=== PATIENT | female | born 1960 ===

== ENCOUNTER 2017-08-06 00:22 | Emergency (ER) | payer OTHER ==
[2017-08-06 00:23] VITALS: BMI 27.3
[2017-08-06 00:31] VITALS: BP 150/77; PULSE 80; TEMP 97.7; O2SAT 99
[2017-08-06] MEDS ORDERED: Tetanus/Diphtheria Toxoids 0.5 ml Syringe IM ONE (00:44)
[2017-08-06] MEDS ORDERED: Absorbable Gelatin Sponge Size 12-7 MM STA (00:44)
[2017-08-06] MEDS ORDERED: Absorbable Gelatin Sponge Size 12-7 ONE (00:46)
--- NOTE | 2017-08-06 00:53 | C.PDOC ---
History Of Present Illness 57 year old female presents to the ED for evaluation of wound to right index finger sustained just prior to arrival. 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 She is not up to date with tetanus. She denies change in sensation or other injuries. Time Seen by Provider: 08/06/17 00:39 Chief Complaint (Nursing): Abnormal Skin Integrity History Per: Patient History/Exam Limitations: no limitations Onset/Duration Of Symptoms: Hrs Current Symptoms Are (Timing): Still Present Location Of Injury: Right: Hand (index finger ) Quality Of Symptoms: Painful. denies: Itching, Swollen, Draining Recent travel outside of the [place]: No Past Medical History Reviewed: Historical Data, Nursing Documentation, Vital Signs Vital Signs: Last Vital Signs Temp 97.7 F 08/06/17 00:28 Pulse 80 08/06/17 00:28 Resp 20 08/06/17 01:04 BP 150/77 08/06/17 00:28 Pulse Ox 99 08/06/17 04:27 Family History: States: Unknown Family Hx - Social History Hx Alcohol Use: No Hx Substance Use: No - Immunization History Hx Tetanus Toxoid Vaccination: No Hx Influenza Vaccination: No Hx Pneumococcal Vaccination: No Review Of Systems Constitutional: Negative for: Fever Gastrointestinal: Negative for: Nausea, Vomiting Skin: Positive for: Other (wound to right index finger ) Neurological: Negative for: Weakness, Numbness Physical Exam - Physical Exam Appears: Non-toxic, No Acute Distress Skin: Warm, Dry, Other (8mm x 5 mm skin avulsion to tip of right index finger with moderate bleeding. No bone exposure. Fingernail is intact. ) Head: Atraumatic, Normacephalic Extremity: Normal ROM, No Tenderness, Capillary Refill (good capillary refill, less than two seconds ), No Swelling Pulses: Left Radial: Normal, Right Radial: Normal Neurological/Psych: Oriented x3 ED Course And Treatment O2 Sat by Pulse Oximetry: 99 (RA) Progress Note: Wound was irrigated with normal saline. Gelfoam was used, hemostasis was achieved, and wound was dressed in a sterile fashion. Patient given tetanus vaccine and Keflex. Disposition - Disposition Disposition: HOME/ ROUTINE Disposition Time: 00:52 Condition: STABLE Additional Instructions: Follow up with your PMD within 1-2 days. Return to ED if feel worse. 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 - Scribe Statement The provider has reviewed the documentation as recorded by the Scribe Marisol Koenig All medical record entries made by the Scribe were at my direction and personally dictated by me. I have reviewed the chart and agree that the record accurately reflects my personal performance of the history, physical exam, medical decision making, and the department course for this patient. I have also personally directed, reviewed, and agree with the discharge instructions and disposition.
[2017-08-06 01:04] VITALS: RESP 20
== END 2017-08-06 01:14 | disposition home or self-care (01) ==
LOC: C.ER 00:22
DX: S61.210A Laceration without foreign body of right index finger without damage to nail, initial encounter (principal); W29.0XXA Contact with powered kitchen appliance, initial encounter; Y93.G1 Activity, food preparation and clean up; Y92.89 Other specified places as the place of occurrence of the external cause; Y99.0 Civilian activity done for income or pay

== ENCOUNTER 2018-04-29 15:43 | Inpatient (IN) | payer OTHER ==
[2018-04-29 15:57] VITALS: BMI 25.0
[2018-04-29] MEDS ORDERED: Sodium Chloride 0.9% 1,000 ML IV ONE (16:38)
--- NOTE | 2018-04-29 16:40 | C.PDOC ---
History Of Present Illness 57 y/o female presents to ED sent by PMD for low hemoglobin. Patient states she had blood work done and was notified her hemoglobin was around 4, advised to come to ED for further evaluation. Patient denies vaginal bleeding, gi bleeding , lightheadedness, fever, chills or any other complaints at this time. Time Seen by Provider: 04/29/18 16:37 Chief Complaint (Nursing): Abnormal Labs History Per: Patient History/Exam Limitations: no limitations Onset/Duration Of Symptoms: Days Current Symptoms Are (Timing): Still Present Past Medical History Reviewed: Historical Data, Nursing Documentation, Vital Signs Vital Signs: Last Vital Signs Temp 99 F 04/29/18 15:59 Pulse 82 04/29/18 18:30 Resp 18 04/29/18 18:30 BP 118/45 L 04/29/18 18:30 Pulse Ox 100 04/29/18 19:06 - Medical History PMH: No Chronic Diseases Surgical History: No Surg Hx Family History: States: No Known Family Hx - Social History Hx Alcohol Use: No Hx Substance Use: No - Immunization History Hx Tetanus Toxoid Vaccination: No Hx Influenza Vaccination: No Hx Pneumococcal Vaccination: No Review Of Systems Constitutional: Negative for: Fever, Chills Cardiovascular: Negative for: Chest Pain Respiratory: Negative for: Shortness of Breath Gastrointestinal: Negative for: Nausea, Vomiting Skin: Negative for: Rash Neurological: Positive for: Weakness. Negative for: Numbness Physical Exam - Physical Exam Appears: Non-toxic, No Acute Distress Skin: Warm, Dry, No Rash Head: Atraumatic, Normacephalic Eye(s): bilateral: Normal Inspection Oral Mucosa: Moist Neck: Normal ROM, Supple Cardiovascular: Rhythm Regular Respiratory: Normal Breath Sounds, No Rales, No Rhonchi, No Wheezing Gastrointestinal/Abdominal: Soft, No Tenderness, No Guarding, No Rebound Rectal: Heme Positive, Blood Streaked Stool Extremity: Pedal Edema (trace), Capillary Refill (<2 seconds), No Deformity, No Swelling Neurological/Psych: Oriented x3, Normal Speech, Normal Cognition ED Course And Treatment - Laboratory Results Result Diagrams: 04/29/18 17:58 04/29/18 17:58 Lab Interpretation: Abnormal ECG: Interpreted By Me ECG Rhythm: Sinus Rhythm ECG Interpretation: No Acute Changes Rate From EC O2 Sat by Pulse Oximetry: 100 (RA) Pulse Ox Interpretation: Normal Progress Note: Treated with IVF NSS. Type and cross for 2 units PC. 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 - Scribe Statement The provider has reviewed the documentation as recorded by the Scribe Suzan Merritt All medical record entries made by the Edgraibvernon were at my direction and personally dictated by me. I have reviewed the chart and agree that the record accurately reflects my personal performance of the history, physical exam, medical decision making, and the department course for this patient. I have also personally directed, reviewed, and agree with the discharge instructions and disposition. Decision To Admit - Pt Status Changed To: Hospital Disposition Of: [facility] Extended Stay Bed - InPatient: Physician Admission Certification: I certify that this patient requires 2 or more midnights of care for the following reason:: Anemia - . Bed Request Type: Telemetry Admitting Physician: Hubert Weber Patient Diagnosis: Anemia, GIB (gastrointestinal bleeding)
[2018-04-29] MEDS ORDERED: Sodium Chloride 0.9% 1,000 ML ONE (16:57)
[2018-04-29 18:17] LABS: ALB/GLOB RATIO 1.1 (1.0-2.1); ALBUMIN 3.4 g/dL (3.5-5.0); ALT/SGPT 36 U/L (9-52); AST/SGOT 43 U/L (14-36); BLOOD UREA NITROGEN 14 mg/dL (7-17); GFR AFRICAN-AMERICAN > 60; GFR NON-AFRICAN AMERICAN > 60
[2018-04-29 18:26] LABS: BASO % 1.2 % (0.0-2.0); EOS # 0.1 K/uL (0.0-0.7); EOS % 4.7 % (0.0-4.0); LYMPH # 0.6 K/uL (1.0-4.3); MEAN CELL VOLUME 64.4 fL (81.0-99.0); MEAN CORPUSCULAR HEMOGLOBIN 18.9 pg (27.0-31.0); MEAN CORPUSCULAR HGB CONC 29.4 g/dL (33.0-37.0); MEAN PLATELET VOLUME 8.7 fL (7.2-11.7); MONO # 0.2 K/uL (0.0-0.8); MONO % 7.9 % (0.0-10.0); NEUT # 1.4 K/uL (1.8-7.0); NEUT % 59.2 % (50.0-75.0); NRBC % 0.5 % (0.0-2.0); RBC 2.55 Mil/uL (3.80-5.20); RED CELL DISTRIBUTION WIDTH 19.6 % (11.5-14.5); WHITE BLOOD COUNT 2.3 K/uL (4.8-10.8)
[2018-04-29 18:32] LABS: HEMOGLOBIN 4.8 g/dL (11.0-16.0)
[2018-04-29] MEDS ORDERED: Pantoprazole 80 MG in Sodium Chloride 0.9% 100 ML IVP SCH (19:15)
--- NOTE | 2018-04-29 20:44 | CP.PCM.HP ---
<Mariam PathakLarry - Last Filed: 04/29/18 21:31> History of Present Illness - History of Present Illness History of Present Illness: CC: "my legs are swollen" HPI: 57 year old female with past medical history as noted before presents to the ER because her PMD told her to come due to her hemaglobin level of 4.8 in the office. Patient states today was her first visit with her PMD Dr. Romero and she went to see him because she has been having bilateral lower extremity edema for the past 5 days. She states the swelling is new and has never happened before. She states for the past few months she has felt headache, short of breath after walking half a block it takes her 3 minutes of rest to catch her breath. She also states the past couple of weeks she has been having chills and she states she has had a decrease in weight the past year but cannot quantify how many pounds. She states she does take Motrin a few times per week for headache but denies taking it everyday. She states her bowel movements have been regular but her stool has been dark in color and sometimes white. She denies blood in her stool, urine or vaginal bleeding. She states she had a colonoscopy in 1993 because at that time she had some rectal bleeding but she was told everything was normal and the bleeding never returned. She denies chest pain, nausea, vomiting, diarrhea, constipation, fever, dysuria, recent travel or sick contacts. PMD: Dr. Jasmyn Romero Past Medical History: HTN, Diabetes; patient previously was a [facility] patient (Dr. Barrera) and was last seen in October 2017 at that time patient was diagnosed with: DM type II; iorn deficiency anemia;thrombocyotpenia and neutropenia. Patient at that time was instructed to follow up with Hematoloist/Oncologist Dr. Dinero and GI for a colonoscopy. 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 Present on Admission - Present on Admission Any Indicators Present on Admission: No Review of Systems - Constitutional Constitutional: Chills, Fatigue, Headache, Weight Loss. absent: Fever - EENT Eyes: absent: Blurred Vision Ears: absent: Dizziness - Cardiovascular Cardiovascular: Dyspnea, Leg Edema, Pedal Edema. absent: Chest Pain, Lightheadedness, Palpitations - Respiratory Respiratory: Dyspnea - Gastrointestinal Gastrointestinal: absent: Abdominal Pain, Constipation, Diarrhea, Hematemesis, Hematochezia, Nausea, Vomiting - Genitourinary Genitourinary: absent: Dysuria, Hematuria - Reproductive: Female Reproductive:Female: absent: Abnormal Vaginal Bleeding - Menstruation Menstruation: absent: Abnormal Vaginal Bleeding - Musculoskeletal Musculoskeletal: absent: Numbness, Tingling - Neurological Neurological: Headaches. absent: Dizziness, Tremor, Weakness - Endocrine Endocrine: Fatigue. absent: Palpitations Past Patient History - Infectious Disease Hx of Infectious Diseases: None - Past Social History Smoking Status: Never Smoked - CARDIAC Hx Cardiac Disorders: No - PULMONARY Hx Respiratory Disorders: No - NEUROLOGICAL Hx Neurological Disorder: No - HEENT Hx HEENT Problems: No - RENAL Hx Chronic Kidney Disease: No - ENDOCRINE/METABOLIC Hx Endocrine Disorders: Yes Hx Diabetes Mellitus Type 2: Yes - HEMATOLOGICAL/ONCOLOGICAL Hx Blood Disorders: Yes Other/Comment: LOW PLT'S PER PT - INTEGUMENTARY Hx Dermatological Problems: No - MUSCULOSKELETAL/RHEUMATOLOGICAL Hx Musculoskeletal Disorders: No - GASTROINTESTINAL Hx Gastrointestinal Disorders: Yes Hx Fatty Liver Disease: Yes - GENITOURINARY/GYNECOLOGICAL Hx Genitourinary Disorders: Yes Other/Comment: kidney stones - PSYCHIATRIC Hx Substance Use: No - SURGICAL HISTORY Hx Surgeries: No - ANESTHESIA Hx Anesthesia: No Hx Anesthesia Reactions: No Hx Malignant Hyperthermia: No Meds Allergies/Adverse Reactions: Allergies Allergy/AdvReac Type Severity Reaction Status Date / Time No Known Allergies Allergy Verified 04/29/18 15:56 Physical Exam - Constitutional Appears: No Acute Distress - Head Exam Head Exam: ATRAUMATIC, NORMAL INSPECTION - Eye Exam Eye Exam: EOMI, Normal appearance, PERRL. absent: Scleral icterus Pupil Exam: NORMAL ACCOMODATION - ENT Exam ENT Exam: Mucous Membranes Moist - Respiratory Exam Respiratory Exam: Clear to Auscultation Bilateral, NORMAL BREATHING PATTERN - Cardiovascular Exam Cardiovascular Exam: Diastolic murmur, REGULAR RHYTHM, RRR, +S1, +S2. absent: JVD - GI/Abdominal Exam GI & Abdominal Exam: Normal Bowel Sounds, Soft. absent: Distended, Firm, Organomegaly, Tenderness - Rectal Exam Rectal Exam: NORMAL INSPECTION. absent: Black Stool, Bloody Stool, Hemorrhoids - Extremities Exam Extremities exam: Positive for: normal capillary refill, pedal edema, pedal pulses present. Negative for: tenderness - Neurological Exam Neurological exam: Alert, CN II-XII Intact, Oriented x3 - Psychiatric Exam Psychiatric exam: Normal Affect, Normal Mood - Skin Skin Exam: Normal Color Results - Vital Signs Recent Vital Signs: Last Vital Signs Temp 98.1 F 04/29/18 20:36 Pulse 82 04/29/18 20:36 Resp 15 04/29/18 20:36 BP 125/59 L 04/29/18 20:36 Pulse Ox 97 04/29/18 20:36 - Labs Result Diagrams: 04/29/18 17:58 04/29/18 17:58 Labs: Laboratory Results - last 24 hr 04/29/18 04/29/18 04/29/18 17:58 17:58 17:58 WBC 2.3 L RBC 2.55 L Hgb 4.8 L* D Hct 16.4 L MCV 64.4 L D MCH 18.9 L MCHC 29.4 L RDW 19.6 H Plt Count 88 L D MPV 8.7 Neut % (Auto) 59.2 Lymph % (Auto) 27.0 [place] % (Auto) 7.9 Eos % (Auto) 4.7 H Baso % (Auto) 1.2 Neut # (Auto) 1.4 L Lymph # (Auto) 0.6 L [place] # (Auto) 0.2 Eos # (Auto) 0.1 Baso # (Auto) 0.0 Sodium 142 Potassium 3.7 Chloride 110 H Carbon Dioxide 24 Anion Gap 12 BUN 14 Creatinine 0.5 L Est GFR ( Amer) > 60 Est GFR (Non-Af Amer) > 60 Random Glucose 122 H Calcium 8.0 L Total Bilirubin 0.7 AST 43 H D ALT 36 Alkaline Phosphatase 90 Total Protein 6.5 Albumin 3.4 L Globulin 3.1 Albumin/Globulin Ratio 1.1 Blood Type O POSITIVE Antibody Screen Negative Assessment & Plan - Assessment and Plan (Free Text) Assessment: Symptomatic Anemia/History of Iron deficiency Anemia - possibly secondary to an upper GI bleed - H/H 4.8/16.4 - Stool Occult Blood: Positive - EKG: NSR @80bpm - Type And Screen - 2 units of PRBC - GI consult: Dr. Perales --> help appreciated - Hem/Onc Consult: Dr. Dinero --> help appreciated - f/u iron studies History of Thrombocytopeia - Platelets 88 - Hem/Onc Consult: Dr. Dinero --> help appreciated - f/u abdominal US History of Neutropenia - WBC 2.3 - Hem/Onc Consult: Dr. Dinero --> help appreciated - f/u HIV and Hepatitis panell LE Swelling - possibly secondary to new onset heart failure due to chronic anemia - EKG: NSR @80bpm - f/u Chest Xray - f/u ECHO History of Diabetes Type II - f/u A1c and Lipid Panel History of HTN - b/p stable - f/u TSH and free T4 - Continue to monitor Prophylaxis - VTE contraindication secondary to anemia - SCDs contraindication secondary to LE edema - Protonix 40mg PO daily - Heart Healthy/Low Carb Diet Case discussed with Dr. Gus Pathak PGY-2 <Hubert Weber P - Last Filed: 04/30/18 07:31> Results - Vital Signs Recent Vital Signs: Last Vital Signs Temp 97.9 F 04/30/18 04:15 Pulse 87 04/30/18 04:57 Resp 20 04/30/18 04:15 BP 124/66 04/30/18 04:15 Pulse Ox 99 04/29/18 23:45 - Labs Result Diagrams: 04/29/18 17:58 04/29/18 17:58 Labs: Laboratory Results - last 24 hr 04/29/18 04/29/18 04/29/18 16:38 17:58 17:58 WBC 2.3 L RBC 2.55 L Hgb 4.8 L* D Hct 16.4 L MCV 64.4 L D MCH 18.9 L MCHC 29.4 L RDW 19.6 H Plt Count 88 L D MPV 8.7 Neut % (Auto) 59.2 Lymph % (Auto) 27.0 [place] % (Auto) 7.9 Eos % (Auto) 4.7 H Baso % (Auto) 1.2 Neut # (Auto) 1.4 L Lymph # (Auto) 0.6 L [place] # (Auto) 0.2 Eos # (Auto) 0.1 Baso # (Auto) 0.0 Retic Count Sodium 142 Potassium 3.7 Chloride 110 H Carbon Dioxide 24 Anion Gap 12 BUN 14 Creatinine 0.5 L Est GFR ( Amer) > 60 Est GFR (Non-Af Amer) > 60 Random Glucose 122 H Calcium 8.0 L Iron TIBC % Saturation Ferritin Total Bilirubin 0.7 AST 43 H D ALT 36 Alkaline Phosphatase 90 Total Protein 6.5 Albumin 3.4 L Globulin 3.1 Albumin/Globulin Ratio 1.1 Urine Color Straw Urine Clarity Clear Urine pH 7.0 Ur Specific [place] 1.011 Urine Protein Negative Urine Glucose (UA) Normal Urine Ketones Negative Urine Blood Negative Urine Nitrate Negative Urine Bilirubin Negative Urine Urobilinogen 2.0 H Ur Leukocyte Esterase Neg Urine WBC (Auto) < 1 Urine RBC (Auto) < 1 Ur Squamous Epith Cells < 1 Stool Occult Blood Hepatitis A IgM Ab Hep Bs Antigen Hep B Core IgM Ab Hepatitis C Antibody HIV 1&2 Antibody Screen Blood Type Antibody Screen 04/29/18 04/29/18 04/29/18 17:58 20:36 20:36 WBC RBC Hgb Hct MCV MCH MCHC RDW Plt Count MPV Neut % (Auto) Lymph % (Auto) [place] % (Auto) Eos % (Auto) Baso % (Auto) Neut # (Auto) Lymph # (Auto) [place] # (Auto) Eos # (Auto) Baso # (Auto) Retic Count 2.9 H D Sodium Potassium Chloride Carbon Dioxide Anion Gap BUN Creatinine Est GFR ( Amer) Est GFR (Non-Af Amer) Random Glucose Calcium Iron TIBC % Saturation Ferritin 7.4 Total Bilirubin AST ALT Alkaline Phosphatase Total Protein Albumin Globulin Albumin/Globulin Ratio Urine Color Urine Clarity Urine pH Ur Specific [place] Urine Protein Urine Glucose (UA) Urine Ketones Urine Blood Urine Nitrate Urine Bilirubin Urine Urobilinogen Ur Leukocyte Esterase Urine WBC (Auto) Urine RBC (Auto) Ur Squamous Epith Cells Stool Occult Blood Hepatitis A IgM Ab Hep Bs Antigen Hep B Core IgM Ab Hepatitis C Antibody HIV 1&2 Antibody Screen Blood Type O POSITIVE Antibody Screen Negative 04/29/18 04/29/18 04/29/18 20:43 20:50 21:03 WBC RBC Hgb Hct MCV MCH MCHC RDW Plt Count MPV Neut % (Auto) Lymph % (Auto) [place] % (Auto) Eos % (Auto) Baso % (Auto) Neut # (Auto) Lymph # (Auto) [place] # (Auto) Eos # (Auto) Baso # (Auto) Retic Count Sodium Potassium Chloride Carbon Dioxide Anion Gap BUN Creatinine Est GFR ( Amer) Est GFR (Non-Af Amer) Random Glucose Calcium Iron 13 L TIBC 431 % Saturation 3 L Ferritin Total Bilirubin AST ALT Alkaline Phosphatase Total Protein Albumin Globulin Albumin/Globulin Ratio Urine Color Urine Clarity Urine pH Ur Specific [place] Urine Protein Urine Glucose (UA) Urine Ketones Urine Blood Urine Nitrate Urine Bilirubin Urine Urobilinogen Ur Leukocyte Esterase Urine WBC (Auto) Urine RBC (Auto) Ur Squamous Epith Cells Stool Occult Blood Positive H Hepatitis A IgM Ab Negative Hep Bs Antigen Negative Hep B Core IgM Ab Negative Hepatitis C Antibody Negative HIV 1&2 Antibody Screen Blood Type Antibody Screen 04/29/18 04/29/18 21:03 21:03 WBC RBC Hgb Hct MCV MCH MCHC RDW Plt Count MPV Neut % (Auto) Lymph % (Auto) [place] % (Auto) Eos % (Auto) Baso % (Auto) Neut # (Auto) Lymph # (Auto) [place] # (Auto) Eos # (Auto) Baso # (Auto) Retic Count Sodium Potassium Chloride Carbon Dioxide Anion Gap BUN Creatinine Est GFR ( Amer) Est GFR (Non-Af Amer) Random Glucose Calcium Iron TIBC % Saturation 3 L Ferritin Total Bilirubin AST ALT Alkaline Phosphatase Total Protein Albumin Globulin Albumin/Globulin Ratio Urine Color Urine Clarity Urine pH Ur Specific [place] Urine Protein Urine Glucose (UA) Urine Ketones Urine Blood Urine Nitrate Urine Bilirubin Urine Urobilinogen Ur Leukocyte Esterase Urine WBC (Auto) Urine RBC (Auto) Ur Squamous Epith Cells Stool Occult Blood Hepatitis A IgM Ab Hep Bs Antigen Hep B Core IgM Ab Hepatitis C Antibody HIV 1&2 Antibody Screen Negative Blood Type Antibody Screen Attending/Attestation - Attestation I have personally seen and examined this patient.: Yes I have fully participated in the care of the patient.: Yes I have reviewed all pertinent clinical information: Yes Notes (Text): Anemia likely from 2 reasons 1. Gi loss causing iron deficiency and microcytosis , 2. Production ie. in BM as all cell lines are low, and she has hepatosplenomegaly suspecting BM involvement. Hyperdynamic circulation, aortic murmur, leg edema H/o NSAIDs use H/o DM H/o GI bleed in the past, with dark stools suggesting upper gi source/mekels diverticulum. Plan PRBC PPI GI consult Heamatology consult Echo [facility]G liver already done See orders for detail.
[2018-04-29 21:23] LABS: IRON 13 ug/dL (37-170)
[2018-04-29 21:32] LABS: % IRON SATURATION 3 (20-55); TOTAL IRON BINDING CAPACITY 431 ug/dL (250-450)
[2018-04-29 23:27] LABS: HEPATITIS B SURFACE AG Negative (NEGATIVE)
[2018-04-29 23:32] LABS: HEPATITIS A IGM NEGATIVE (NEGATIVE); HEPATITIS B CORE AB NEGATIVE (NEGATIVE)
[2018-04-29 23:44] LABS: HEPATITIS C ANTIBODY NEGATIVE (NEGATIVE)
[2018-04-30 01:14] LABS: SQUAMOUS EPITHIAL < 1 /hpf (0-5); URINE BILIRUBIN NEGATIVE (NEGATIVE); URINE BLOOD NEGATIVE (NEGATIVE); URINE CLARITY Clear (Clear); URINE COLOR Straw (YELLOW); URINE GLUCOSE (UA) NORMAL (Normal); URINE LEUKOCYTE ESTERASE NEG Leu/uL (Negative); URINE PROTEIN NEGATIVE (NEGATIVE)
[2018-04-30 07:22] LABS: BASO % 1.1 % (0.0-2.0); EOS # 0.1 K/uL (0.0-0.7); EOS % 5.3 % (0.0-4.0); LYMPH # 0.6 K/uL (1.0-4.3); LYMPH % 29.5 % (20.0-40.0); MEAN CORPUSCULAR HEMOGLOBIN 22.2 pg (27.0-31.0); MEAN CORPUSCULAR HGB CONC 31.4 g/dL (33.0-37.0); MEAN PLATELET VOLUME 8.5 fL (7.2-11.7); MONO # 0.2 K/uL (0.0-0.8); MONO % 8.1 % (0.0-10.0); NEUT # 1.2 K/uL (1.8-7.0); NRBC % 0.1 % (0.0-2.0); RBC 2.89 Mil/uL (3.80-5.20); RED CELL DISTRIBUTION WIDTH 25.2 % (11.5-14.5); WHITE BLOOD COUNT 2.2 K/uL (4.8-10.8)
[2018-04-30 07:27] LABS: MEAN CELL VOLUME 70.7 fL (81.0-99.0)
[2018-04-30 07:29] LABS: HEMOGLOBIN 6.4 g/dL (11.0-16.0)
--- NOTE | 2018-04-30 07:30 | CP.PCM.PN ---
<RakeshNima mota Sammi - Last Filed: 04/30/18 14:23> Subjective - Date & Time of Evaluation Date of Evaluation: 04/30/18 Time of Evaluation: 07:25 - Subjective Subjective: PGY-2 medicine note. No acute events noted overnight. Patient s/p 2u pRBCs. Patient to receive 1u pRBC today. Patient had EGD with GI today. Stated she felt well. Did not offer any complaints other than feeling tired. Tolerated transfusion well. Objective - Vital Signs/Intake and Output Vital Signs (last 24 hours): Temp Pulse Resp BP Pulse Ox 97.9 F 87 20 124/66 99 04/30/18 04:15 04/30/18 04:57 04/30/18 04:15 04/30/18 04:15 04/29/18 23:45 Intake and Output: 04/30/18 04/30/18 06:59 18:59 Intake Total 725 Balance 725 - Medications Medications: Current Medications Pantoprazole Sodium (Protonix Ec Tab) 40 mg PO DAILY ELLY - Labs Labs: 04/29/18 17:58 04/29/18 17:58 - Additional Findings Additional findings: - Constitutional Appears: No Acute Distress - Head Exam Head Exam: ATRAUMATIC, NORMAL INSPECTION - Eye Exam Eye Exam: EOMI, Normal appearance, PERRL. absent: Scleral icterus Pupil Exam: NORMAL ACCOMODATION - ENT Exam ENT Exam: Mucous Membranes Moist - Respiratory Exam Respiratory Exam: Clear to Auscultation Bilateral, NORMAL BREATHING PATTERN - Cardiovascular Exam Cardiovascular Exam: Diastolic murmur, REGULAR RHYTHM, RRR, +S1, +S2. absent: JVD - GI/Abdominal Exam GI & Abdominal Exam: Normal Bowel Sounds, Soft. absent: Distended, Firm, Organomegaly, Tenderness - Rectal Exam Rectal Exam: NORMAL INSPECTION. absent: Black Stool, Bloody Stool, Hemorrhoids - Extremities Exam Extremities exam: Positive for: normal capillary refill, pedal edema, pedal pulses present. Negative for: tenderness - Neurological Exam Neurological exam: Alert, CN II-XII Intact, Oriented x3 - Psychiatric Exam Psychiatric exam: Normal Affect, Normal Mood - Skin Skin Exam: Normal Color Assessment and Plan - Assessment and Plan (Free Text) Assessment: Iron deficiency Anemia - Based on iron studies this is iron deficiency anemia possibly secondary to chronic upper GI bleed however patient w/ pancytopenic thus neoplasm not excluded - GI consult: Dr. Perales --> help appreciated * patient is s/p EGD 04/30 - Hem/Onc Consult: Dr. Dinero --> help appreciated Diagnostics: - Iron studies * retic count 2.9 (high), iron 13 (low), tibc 431 (normal), % saturation 13 (low ), ferritin 7.4 (low) - H/H on admission: 4.8/16.4 - Stool Occult Blood: Positive - EKG: NSR @80bpm - EGD performed on 04/30 showed esophageal and gastric varices and band ligation with 3 bands. Multiple superficial gastric antral ulcers likely from NSAID use, no active bleeding Therapy: - 2 units of PRBC given 04/29 - 1 unit of PRBC given 04/30 - Ferrlicit 125mg IVP QD Cirrhosis consult IR, Dr Gipson for paracentesis due to ascites seen on US * f/u paracentesis Diagnostics: - F/U Body fluid culture, cytology, albumin/peritoneal fluid, cell count, total protein peritoneal fluid Imaging: Abd US 04/29: * Cirrhosis of liver. Splenomegaly. Ascites. Cholelithiasis. F/U liver triple phase CT Esophageal and Gastric Varices - EGD performed on 04/30 showed esophageal and gastric varices and band ligation with 3 bands. Multiple superficial gastric antral ulcers likely from NSAID use, no active bleeding Therapy: - Octreotide 1250mcg IV 50mcg/hr - Carvedilol 3.125mg PO BID Multiple Superficial Gastric Antral Ulcers - EGD performed on 04/30 showed esophageal and gastric varices and band ligation with 3 bands. Multiple superficial gastric antral ulcers likely from NSAID use, no active bleeding Therapy: - Protonix 40mg IVP Q12H Thrombocytopeia Possibly 2/2 to cirhosis - Platelets 88 - Hem/Onc Consult: Dr. Dinero --> help appreciated - hep panel negative, hiv negative Abd US 04/29: * Cirrhosis of liver. Splenomegaly. Ascites. Cholelithiasis. Neutropenia - WBC 2.3 - Hem/Onc Consult: Dr. Dinero --> help appreciated - hep panel negative, hiv negative Therapy: - Ceftriaxone 1g IV Q24H LE Swelling - possibly secondary to new onset heart failure due to chronic anemia - EKG: NSR @80bpm - Chest Xray 04/30 showed mild cardiomegaly and pulmonary venous congestion, no lobar pneumonia. - f/u ECHO History of Diabetes Type II - A1c 5.7 - Lipid Panel normal except HDL low at 23 History of HTN - b/p stable - TSH and free T4 NORMAL - Continue to monitor Prophylaxis - VTE contraindication secondary to anemia - SCDs contraindication secondary to LE edema - Protonix 40mg IVP BID - Heart Healthy/Low Carb Diet <Johny Emerson H - Last Filed: 05/01/18 07:53> Objective - Vital Signs/Intake and Output Vital Signs (last 24 hours): Temp Pulse Resp BP Pulse Ox 98.1 F 69 20 121/60 97 04/30/18 23:40 05/01/18 03:52 04/30/18 23:40 04/30/18 23:40 04/30/18 23:40 Intake and Output: 05/01/18 05/01/18 06:59 18:59 Intake Total 555 Balance 555 - Medications Medications: Current Medications Carvedilol (Coreg) 3.125 mg PO BID [facility] Last Admin: 04/30/18 17:58 Dose: 3.125 mg Ferric Sodium Gluconate Complex (Ferrlecit) 125 mg IVPB Q24H ELLY Stop: 05/08/18 19:01 Last Admin: 04/30/18 18:10 Dose: 125 mg Octreotide Acetate 1,250 mcg/ (Sodium Chloride) 250 mls @ 10 mls/hr IV .Q24H ELLY; 50 MCG/HR PRN Reason: Protocol Last Admin: 04/30/18 13:02 Dose: 10 mls/hr Ceftriaxone Sodium (Rocephin Iv 1 Gm Duplex) 50 mls @ 100 mls/hr IVPB Q24H ELLY PRN Reason: Protocol Last Admin: 04/30/18 17:59 Dose: 100 mls/hr Ondansetron HCl (Zofran Inj) 4 mg IVP Q8H ELLY Last Admin: 05/01/18 05:38 Dose: 4 mg Pantoprazole Sodium (Protonix Inj) 40 mg IVP Q12 ELLY Last Admin: 04/30/18 21:26 Dose: 40 mg - Labs Labs: 05/01/18 06:34 05/01/18 06:34 PT 14.5 SECONDS (9.7-12.2) H 05/01/18 06:34 INR 1.3 06/29/18 06:34 APTT 31 SECONDS (21-34) 04/30/18 07:09 Attending/Attestation - Attestation I have personally seen and examined this patient.: Yes I have fully participated in the care of the patient.: Yes I have reviewed all pertinent clinical information, including history, physical exam and plan: Yes Notes (Text): 05/01/18 07:52 Medical attending: Reviewed the above note by the resident. Agree with the above note The patient went for endoscopy earlier this morning. She has already recived two units of PRBCs and will probably need more PRBCs afterwards. Considering the pancytopenia our concern is that she may have some type of maligancy as well. At some point will need an abdominal and pelvis CT Also she is pending a paracentesis as well as there is concern for ascities. thank you Johny Emerson
[2018-04-30 07:38] LABS: INR 1.3; PROTHROMBIN TIME 13.8 SECONDS (9.7-12.2)
[2018-04-30 07:41] LABS: ALBUMIN 2.9 g/dL (3.5-5.0); ALT/SGPT 33 U/L (9-52); AST/SGOT 44 U/L (14-36); BLOOD UREA NITROGEN 11 mg/dL (7-17); CALCIUM 7.8 mg/dl (8.6-10.4); GFR AFRICAN-AMERICAN > 60; GFR NON-AFRICAN AMERICAN > 60; HDL CHOLESTEROL 23 mg/dL (30-70)
[2018-04-30 07:49] LABS: LDL CHOLESTEROL 47 mg/dL (0-129)
[2018-04-30 09:22] LABS: FOLATE 13.7 ng/mL
[2018-04-30] MEDS ORDERED: Etomidate 20 mg/10ml Inj IV ONE (09:49)
[2018-04-30] MEDS ORDERED: Propofol 10 mg/ml Inj (20 ML) ONE (09:49)
[2018-04-30] MEDS ORDERED: Lactated Ringer's 500 ML IV ONE (09:50)
[2018-04-30] MEDS ORDERED: Pantoprazole 40 mg EC Tab PO SCH (10:00)
--- NOTE | 2018-04-30 10:56 | RAD ---
HISTORY: Shortness of breath COMPARISON: 07/15/2016. FINDINGS: LUNGS: The lungs are well inflated. There is mild pulmonary venous congestion and fluid in the horizontal fissure. PLEURA: No significant pleural effusion identified, no pneumothorax apparent. CARDIOVASCULAR: The heart remains enlarged. OSSEOUS STRUCTURES: No significant abnormalities. VISUALIZED UPPER ABDOMEN: Normal. OTHER FINDINGS: None. IMPRESSION: Mild cardiomegaly and pulmonary venous congestion. No lobar pneumonia.
[2018-04-30] MEDS ORDERED: cefTRIAXone IV 1 gm in Dextros 50 ML IVPB SCH (11:00)
--- NOTE | 2018-04-30 11:09 | US ---
HISTORY: pancytopenic COMPARISON: 03/24/2017. TECHNIQUE: Sonographic evaluation of the abdomen. FINDINGS: LIVER: Measures 12.1 cm. There is diffuse increased echogenicity of the liver parenchyma with nodular contour. No mass. No intrahepatic bile duct dilatation. GALLBLADDER: The gallbladder is contracted and there are multiple gallstones. There is mild gallbladder wall thickening which is likely secondary to hepatic disease. The sonographic Mcdonald's sign is negative. COMMON BILE DUCT: Measures 6.0 mm. No stones. No dilatation. PANCREAS: Unremarkable as visualized. No mass. No ductal dilatation. RIGHT KIDNEY: Measures 12.1cm. Normal echogenicity. No calculus, mass, or hydronephrosis. LEFT KIDNEY: Measures 12.8cm. Normal echogenicity. No calculus, mass, or hydronephrosis. SPLEEN: Enlarged and measures 15.5 cm. AORTA: No aneurysmal dilatation. IVC: Unremarkable. OTHER FINDINGS: There is moderate abdominal ascites. IMPRESSION: Cirrhosis of liver. Splenomegaly. Ascites. Cholelithiasis. A preliminary report was provided by [facility].
--- NOTE | 2018-04-30 11:30 | CP.PCM.CON ---
Addendum entered and electronically signed by Bette Fontaine DO 04/30/18 11:42: Pt is s/p EGD with esophageal and gastric varices and band ligation with 3 bands. Multiple superficial gastric antral ulcers likely from NSAID use, no active bleeding. Start IV Octreotide, PPI BID, NPO, IV abx, CT Liver to r/o cirrhosis. Original Note: <Bette Fontaine - Last Filed: 04/30/18 11:12> History of Present Illness - History of Present Illness History of Present Illness: GI Consult PGY4 Consult Note This is a 57 year old female with past medical history HTN, Diabetes, HLD, Iron deficiency Anemia, Pancytopenia, Elevated LFTs presents to the ER because her PMD told her to come due to her low Hgb of 4.8 in the office. Patient previously was a [facility] patient Dr. Barrera and was last seen in October 2017, her Hgb was 9.6 in December 2016. Patient followed up with Dr. Dinero and was iron supplementation but no access to any consult notes. Patient at that time was instructed to follow up with [facility] [employer]/Oncologist Dr. Dinero and GI for a colonoscopy but never done. She states for the past few months she has felt headache, short of breath after walking half a block it takes her 3 minutes of rest to catch her breath. She also states she has had a decrease in weight the past year but her weight is documented at 165lbs since 12/2016. She states she does take Motrin a few times per week for headaches. She states her bowel movements have been regular but her stool has been dark in color. She denies bright blood in her stool, urine or vaginal bleeding. She states she had a colonoscopy in 1993 because at that time she had some rectal bleeding but she was told everything was normal and the bleeding never returned. ROS: A 12pt ROS was negative except as above PMH: As stated above PSH: Colonoscopy 1993 - patient states was normal FH: Neg for colon cancer, dad- passed at 86yo due to pancreatic cancer secondary to alcohol abuse SH: Denies alcohol use; illicit drug use and smoking Past Patient History - Infectious Disease Hx of Infectious Diseases: None - Past Medical History & Family History Past Medical History?: Yes - Past Social History Smoking Status: Never Smoked - CARDIAC Hx Cardiac Disorders: Yes Hx Hypertension: Yes - PULMONARY Hx Respiratory Disorders: No - NEUROLOGICAL Hx Neurological Disorder: No - HEENT Hx HEENT Problems: No - RENAL Hx Chronic Kidney Disease: Yes Hx Kidney Stones: Yes - ENDOCRINE/METABOLIC Hx Endocrine Disorders: Yes Hx Diabetes Mellitus Type 2: Yes - HEMATOLOGICAL/ONCOLOGICAL Hx Blood Disorders: Yes Hx Anemia: Yes Other/Comment: LOW PLT'S PER PT - INTEGUMENTARY Hx Dermatological Problems: No - MUSCULOSKELETAL/RHEUMATOLOGICAL Hx Musculoskeletal Disorders: No Hx Falls: Yes - GASTROINTESTINAL Hx Gastrointestinal Disorders: Yes Hx Fatty Liver Disease: Yes - GENITOURINARY/GYNECOLOGICAL Hx Genitourinary Disorders: Yes Other/Comment: kidney stones - PSYCHIATRIC Hx Psychophysiologic Disorder: No Hx Substance Use: No - SURGICAL HISTORY Hx Surgeries: No - ANESTHESIA Hx Anesthesia: No Hx Anesthesia Reactions: No Hx Malignant Hyperthermia: No Has any member of the family had a problem w/ anesthesia?: No Meds Allergies/Adverse Reactions: Allergies Allergy/AdvReac Type Severity Reaction Status Date / Time No Known Allergies Allergy Verified 04/29/18 15:56 - Medications Medications: Current Medications Carvedilol (Coreg) 3.125 mg PO BID ELLY Ceftriaxone Sodium (Rocephin Iv 1 Gm Duplex) 50 mls @ 100 mls/hr IVPB Q24H ELLY PRN Reason: Protocol Octreotide Acetate 1,250 mcg/ (Sodium Chloride) 250 mls @ 10 mls/hr IV .Q24H ELLY; 50 MCG/HR PRN Reason: Protocol Pantoprazole Sodium (Protonix Inj) 40 mg IVP Q12 ELLY Physical Exam - Constitutional Appears: Non-toxic, No Acute Distress - Head Exam Head Exam: ATRAUMATIC, NORMAL INSPECTION, NORMOCEPHALIC - Eye Exam Eye Exam: EOMI, Normal appearance, PERRL Pupil Exam: PERRL - ENT Exam ENT Exam: Mucous Membranes Moist, Normal Exam - Neck Exam Neck exam: Positive for: Full Rom, Normal Inspection - Respiratory Exam Respiratory Exam: Clear to Auscultation Bilateral, NORMAL BREATHING PATTERN - Cardiovascular Exam Cardiovascular Exam: REGULAR RHYTHM, RRR, +S1, +S2 - GI/Abdominal Exam GI & Abdominal Exam: Normal Bowel Sounds, Soft. absent: Distended, Firm, Organomegaly, Tenderness - Rectal Exam Rectal Exam: NORMAL INSPECTION. absent: Black Stool, Bloody Stool Additional comments: brown stool - Extremities Exam Extremities exam: Positive for: full ROM, normal inspection - Back Exam Back exam: NORMAL INSPECTION - Neurological Exam Neurological exam: Alert, Oriented x3 - Psychiatric Exam Psychiatric exam: Normal Affect, Normal Mood - Skin Skin Exam: Dry, Intact, Normal Color, Warm Results - Vital Signs Recent Vital Signs: Last Vital Signs Temp 97.9 F 04/30/18 10:39 Pulse 66 04/30/18 10:54 Resp 10 L 04/30/18 10:54 BP 121/58 L 04/30/18 10:54 Pulse Ox 100 04/30/18 10:54 - Labs Result Diagrams: 04/30/18 07:09 04/30/18 07:09 Labs: Laboratory Results - last 24 hr 04/29/18 04/29/18 04/29/18 16:38 17:58 17:58 WBC 2.3 L RBC 2.55 L Hgb 4.8 L* D Hct 16.4 L MCV 64.4 L D MCH 18.9 L MCHC 29.4 L RDW 19.6 H Plt Count 88 L D MPV 8.7 Neut % (Auto) 59.2 Lymph % (Auto) 27.0 [place] % (Auto) 7.9 Eos % (Auto) 4.7 H Baso % (Auto) 1.2 Neut # (Auto) 1.4 L Lymph # (Auto) 0.6 L [place] # (Auto) 0.2 Eos # (Auto) 0.1 Baso # (Auto) 0.0 Differential Comment Retic Count PT INR APTT Sodium 142 Potassium 3.7 Chloride 110 H Carbon Dioxide 24 Anion Gap 12 BUN 14 Creatinine 0.5 L Est GFR ( Amer) > 60 Est GFR (Non-Af Amer) > 60 POC Glucose (mg/dL) Random Glucose 122 H Hemoglobin A1c Calcium 8.0 L Phosphorus Magnesium Iron TIBC % Saturation Ferritin Total Bilirubin 0.7 AST 43 H D ALT 36 Alkaline Phosphatase 90 Total Protein 6.5 Albumin 3.4 L Globulin 3.1 Albumin/Globulin Ratio 1.1 Triglycerides Cholesterol LDL Cholesterol Direct HDL Cholesterol Vitamin B12 Folate Free T4 TSH 3rd Generation Urine Color Straw Urine Clarity Clear Urine pH 7.0 Ur Specific [place] 1.011 Urine Protein Negative Urine Glucose (UA) Normal Urine Ketones Negative Urine Blood Negative Urine Nitrate Negative Urine Bilirubin Negative Urine Urobilinogen 2.0 H Ur Leukocyte Esterase Neg Urine WBC (Auto) < 1 Urine RBC (Auto) < 1 Ur Squamous Epith Cells < 1 Stool Occult Blood Hepatitis A IgM Ab Hep Bs Antigen Hep B Core IgM Ab Hepatitis C Antibody HIV 1&2 Antibody Screen Blood Type Antibody Screen 04/29/18 04/29/18 04/29/18 17:58 20:36 20:36 WBC RBC Hgb Hct MCV MCH MCHC RDW Plt Count MPV Neut % (Auto) Lymph % (Auto) [place] % (Auto) Eos % (Auto) Baso % (Auto) Neut # (Auto) Lymph # (Auto) [place] # (Auto) Eos # (Auto) Baso # (Auto) Differential Comment Retic Count 2.9 H D PT INR APTT Sodium Potassium Chloride Carbon Dioxide Anion Gap BUN Creatinine Est GFR ( Amer) Est GFR (Non-Af Amer) POC Glucose (mg/dL) Random Glucose Hemoglobin A1c Calcium Phosphorus Magnesium Iron TIBC % Saturation Ferritin 7.4 Total Bilirubin AST ALT Alkaline Phosphatase Total Protein Albumin Globulin Albumin/Globulin Ratio Triglycerides Cholesterol LDL Cholesterol Direct HDL Cholesterol Vitamin B12 Folate Free T4 TSH 3rd Generation Urine Color Urine Clarity Urine pH Ur Specific [place] Urine Protein Urine Glucose (UA) Urine Ketones Urine Blood Urine Nitrate Urine Bilirubin Urine Urobilinogen Ur Leukocyte Esterase Urine WBC (Auto) Urine RBC (Auto) Ur Squamous Epith Cells Stool Occult Blood Hepatitis A IgM Ab Hep Bs Antigen Hep B Core IgM Ab Hepatitis C Antibody HIV 1&2 Antibody Screen Blood Type O POSITIVE Antibody Screen Negative 04/29/18 04/29/18 04/29/18 20:43 20:50 21:03 WBC RBC Hgb Hct MCV MCH MCHC RDW Plt Count MPV Neut % (Auto) Lymph % (Auto) [place] % (Auto) Eos % (Auto) Baso % (Auto) Neut # (Auto) Lymph # (Auto) [place] # (Auto) Eos # (Auto) Baso # (Auto) Differential Comment Retic Count PT INR APTT Sodium Potassium Chloride Carbon Dioxide Anion Gap BUN Creatinine Est GFR ( Amer) Est GFR (Non-Af Amer) POC Glucose (mg/dL) Random Glucose Hemoglobin A1c Calcium Phosphorus Magnesium Iron 13 L TIBC 431 % Saturation 3 L Ferritin Total Bilirubin AST ALT Alkaline Phosphatase Total Protein Albumin Globulin Albumin/Globulin Ratio Triglycerides Cholesterol LDL Cholesterol Direct HDL Cholesterol Vitamin B12 Folate Free T4 TSH 3rd Generation Urine Color Urine Clarity Urine pH Ur Specific [place] Urine Protein Urine Glucose (UA) Urine Ketones Urine Blood Urine Nitrate Urine Bilirubin Urine Urobilinogen Ur Leukocyte Esterase Urine WBC (Auto) Urine RBC (Auto) Ur Squamous Epith Cells Stool Occult Blood Positive H Hepatitis A IgM Ab Negative Hep Bs Antigen Negative Hep B Core IgM Ab Negative Hepatitis C Antibody Negative HIV 1&2 Antibody Screen Blood Type Antibody Screen 04/29/18 04/29/18 04/30/18 21:03 21:03 07:09 WBC RBC Hgb Hct MCV MCH MCHC RDW Plt Count MPV Neut % (Auto) Lymph % (Auto) [place] % (Auto) Eos % (Auto) Baso % (Auto) Neut # (Auto) Lymph # (Auto) [place] # (Auto) Eos # (Auto) Baso # (Auto) Differential Comment Retic Count PT INR APTT Sodium 142 Potassium 4.0 Chloride 111 H Carbon Dioxide 24 Anion Gap 11 BUN 11 Creatinine 0.6 L Est GFR ( Amer) > 60 Est GFR (Non-Af Amer) > 60 POC Glucose (mg/dL) Random Glucose 125 H Hemoglobin A1c Calcium 7.8 L Phosphorus 3.1 Magnesium 2.0 Iron TIBC % Saturation 3 L Ferritin Total Bilirubin 0.8 AST 44 H ALT 33 Alkaline Phosphatase 83 Total Protein 5.8 L Albumin 2.9 L Globulin 2.9 Albumin/Globulin Ratio 1.0 Triglycerides 99 D Cholesterol 88 LDL Cholesterol Direct 47 HDL Cholesterol 23 L Vitamin B12 908 Folate 13.7 Free T4 TSH 3rd Generation 2.29 Urine Color Urine Clarity Urine pH Ur Specific [place] Urine Protein Urine Glucose (UA) Urine Ketones Urine Blood Urine Nitrate Urine Bilirubin Urine Urobilinogen Ur Leukocyte Esterase Urine WBC (Auto) Urine RBC (Auto) Ur Squamous Epith Cells Stool Occult Blood Hepatitis A IgM Ab Hep Bs Antigen Hep B Core IgM Ab Hepatitis C Antibody HIV 1&2 Antibody Screen Negative Blood Type Antibody Screen 04/30/18 04/30/18 04/30/18 07:09 07:09 07:09 WBC 2.2 L RBC 2.89 L Hgb 6.4 L* Hct 20.4 L MCV 70.7 L D MCH 22.2 L MCHC 31.4 L RDW 25.2 H Plt Count 80 L MPV 8.5 Neut % (Auto) 56.0 Lymph % (Auto) 29.5 [place] % (Auto) 8.1 Eos % (Auto) 5.3 H Baso % (Auto) 1.1 Neut # (Auto) 1.2 L Lymph # (Auto) 0.6 L [place] # (Auto) 0.2 Eos # (Auto) 0.1 Baso # (Auto) 0.0 Differential Comment Retic Count PT INR APTT Sodium Potassium Chloride Carbon Dioxide Anion Gap BUN Creatinine Est GFR ( Amer) Est GFR (Non-Af Amer) POC Glucose (mg/dL) Random Glucose Hemoglobin A1c 5.7 Calcium Phosphorus Magnesium Iron TIBC % Saturation Ferritin Total Bilirubin AST ALT Alkaline Phosphatase Total Protein Albumin Globulin Albumin/Globulin Ratio Triglycerides Cholesterol LDL Cholesterol Direct HDL Cholesterol Vitamin B12 Folate Free T4 1.06 TSH 3rd Generation Urine Color Urine Clarity Urine pH Ur Specific [place] Urine Protein Urine Glucose (UA) Urine Ketones Urine Blood Urine Nitrate Urine Bilirubin Urine Urobilinogen Ur Leukocyte Esterase Urine WBC (Auto) Urine RBC (Auto) Ur Squamous Epith Cells Stool Occult Blood Hepatitis A IgM Ab Hep Bs Antigen Hep B Core IgM Ab Hepatitis C Antibody HIV 1&2 Antibody Screen Blood Type Antibody Screen 04/30/18 04/30/18 07:09 09:38 WBC RBC Hgb Hct MCV MCH MCHC RDW Plt Count MPV Neut % (Auto) Lymph % (Auto) [place] % (Auto) Eos % (Auto) Baso % (Auto) Neut # (Auto) Lymph # (Auto) [place] # (Auto) Eos # (Auto) Baso # (Auto) Differential Comment Retic Count PT 13.8 H INR 1.3 APTT 31 Sodium Potassium Chloride Carbon Dioxide Anion Gap BUN Creatinine Est GFR ( Amer) Est GFR (Non-Af Amer) POC Glucose (mg/dL) 122 H Random Glucose Hemoglobin A1c Calcium Phosphorus Magnesium Iron TIBC % Saturation Ferritin Total Bilirubin AST ALT Alkaline Phosphatase Total Protein Albumin Globulin Albumin/Globulin Ratio Triglycerides Cholesterol LDL Cholesterol Direct HDL Cholesterol Vitamin B12 Folate Free T4 TSH 3rd Generation Urine Color Urine Clarity Urine pH Ur Specific [place] Urine Protein Urine Glucose (UA) Urine Ketones Urine Blood Urine Nitrate Urine Bilirubin Urine Urobilinogen Ur Leukocyte Esterase Urine WBC (Auto) Urine RBC (Auto) Ur Squamous Epith Cells Stool Occult Blood Hepatitis A IgM Ab Hep Bs Antigen Hep B Core IgM Ab Hepatitis C Antibody HIV 1&2 Antibody Screen Blood Type Antibody Screen Assessment & Plan - Assessment and Plan (Free Text) Assessment: This is a 57 year old female with past medical history HTN, Diabetes, HLD, Iron deficiency Anemia, Pancytopenia, Elevated LFTs presents to the ER because her PMD told her to come due to her low Hgb of 4.8 in the office. 1. Acute Anemia, GIB-r/o PUD with NSAID use, Varices? with low plt and elevated ALT 2. Pancytopenia 3. Elevated LFTs Plan: -Continue supportive care with resuscitation -Acute anemia Hgb 4.6-->6.4 s/p 2U PRBCs -No overt GI bleeding, brown stool on exam, hemodynamically stable -Monitor H/H and transfuse as needed to keep Hgb >7.0 -PPI BID -Abd US pending -Hematology cs pending -Further workup for Elevated LFTs, hepatitis panel neg, autoimmune serologies pending -NPO -Will plan for urgent EGD today <Lion Perales - Last Filed: 04/30/18 13:39> Meds - Medications Medications: Current Medications Carvedilol (Coreg) 3.125 mg PO BID [facility] Last Admin: 04/30/18 13:21 Dose: 3.125 mg Octreotide Acetate 1,250 mcg/ (Sodium Chloride) 250 mls @ 10 mls/hr IV .Q24H ELLY; 50 MCG/HR PRN Reason: Protocol Last Admin: 04/30/18 13:02 Dose: 10 mls/hr Ceftriaxone Sodium (Rocephin Iv 1 Gm Duplex) 50 mls @ 100 mls/hr IVPB Q24H ELLY PRN Reason: Protocol Ondansetron HCl (Zofran Inj) 4 mg IVP Q8H [facility] Last Admin: 04/30/18 13:20 Dose: 4 mg Pantoprazole Sodium (Protonix Inj) 40 mg IVP Q12 ELLY Last Admin: 04/30/18 13:21 Dose: 40 mg Results - Vital Signs Recent Vital Signs: Last Vital Signs Temp 98.5 F 04/30/18 13:19 Pulse 70 04/30/18 13:19 Resp 18 04/30/18 13:19 BP 120/59 L 04/30/18 13:19 Pulse Ox 100 04/30/18 11:09 - Labs Result Diagrams: 04/30/18 07:09 04/30/18 07:09 Labs: Laboratory Results - last 24 hr 04/29/18 04/29/18 04/29/18 16:38 17:58 17:58 WBC 2.3 L RBC 2.55 L Hgb 4.8 L* D Hct 16.4 L MCV 64.4 L D MCH 18.9 L MCHC 29.4 L RDW 19.6 H Plt Count 88 L D MPV 8.7 Neut % (Auto) 59.2 Lymph % (Auto) 27.0 [place] % (Auto) 7.9 Eos % (Auto) 4.7 H Baso % (Auto) 1.2 Neut # (Auto) 1.4 L Lymph # (Auto) 0.6 L [place] # (Auto) 0.2 Eos # (Auto) 0.1 Baso # (Auto) 0.0 Differential Comment Retic Count PT INR APTT Sodium 142 Potassium 3.7 Chloride 110 H Carbon Dioxide 24 Anion Gap 12 BUN 14 Creatinine 0.5 L Est GFR ( Amer) > 60 Est GFR (Non-Af Amer) > 60 POC Glucose (mg/dL) Random Glucose 122 H Hemoglobin A1c Calcium 8.0 L Phosphorus Magnesium Iron TIBC % Saturation Ferritin Total Bilirubin 0.7 AST 43 H D ALT 36 Alkaline Phosphatase 90 Total Protein 6.5 Albumin 3.4 L Globulin 3.1 Albumin/Globulin Ratio 1.1 Triglycerides Cholesterol LDL Cholesterol Direct HDL Cholesterol Vitamin B12 Folate Free T4 TSH 3rd Generation Urine Color Straw Urine Clarity Clear Urine pH 7.0 Ur Specific [place] 1.011 Urine Protein Negative Urine Glucose (UA) Normal Urine Ketones Negative Urine Blood Negative Urine Nitrate Negative Urine Bilirubin Negative Urine Urobilinogen 2.0 H Ur Leukocyte Esterase Neg Urine WBC (Auto) < 1 Urine RBC (Auto) < 1 Ur Squamous Epith Cells < 1 Stool Occult Blood IgG Hepatitis A IgM Ab Hep Bs Antigen Hep B Core IgM Ab Hepatitis C Antibody HIV 1&2 Antibody Screen Blood Type Antibody Screen 04/29/18 04/29/18 04/29/18 17:58 20:36 20:36 WBC RBC Hgb Hct MCV MCH MCHC RDW Plt Count MPV Neut % (Auto) Lymph % (Auto) [place] % (Auto) Eos % (Auto) Baso % (Auto) Neut # (Auto) Lymph # (Auto) [place] # (Auto) Eos # (Auto) Baso # (Auto) Differential Comment Retic Count 2.9 H D PT INR APTT Sodium Potassium Chloride Carbon Dioxide Anion Gap BUN Creatinine Est GFR ( Amer) Est GFR (Non-Af Amer) POC Glucose (mg/dL) Random Glucose Hemoglobin A1c Calcium Phosphorus Magnesium Iron TIBC % Saturation Ferritin 7.4 Total Bilirubin AST ALT Alkaline Phosphatase Total Protein Albumin Globulin Albumin/Globulin Ratio Triglycerides Cholesterol LDL Cholesterol Direct HDL Cholesterol Vitamin B12 Folate Free T4 TSH 3rd Generation Urine Color Urine Clarity Urine pH Ur Specific [place] Urine Protein Urine Glucose (UA) Urine Ketones Urine Blood Urine Nitrate Urine Bilirubin Urine Urobilinogen Ur Leukocyte Esterase Urine WBC (Auto) Urine RBC (Auto) Ur Squamous Epith Cells Stool Occult Blood IgG Hepatitis A IgM Ab Hep Bs Antigen Hep B Core IgM Ab Hepatitis C Antibody HIV 1&2 Antibody Screen Blood Type O POSITIVE Antibody Screen Negative 04/29/18 04/29/18 04/29/18 20:43 20:50 21:03 WBC RBC Hgb Hct MCV MCH MCHC RDW Plt Count MPV Neut % (Auto) Lymph % (Auto) [place] % (Auto) Eos % (Auto) Baso % (Auto) Neut # (Auto) Lymph # (Auto) [place] # (Auto) Eos # (Auto) Baso # (Auto) Differential Comment Retic Count PT INR APTT Sodium Potassium Chloride Carbon Dioxide Anion Gap BUN Creatinine Est GFR ( Amer) Est GFR (Non-Af Amer) POC Glucose (mg/dL) Random Glucose Hemoglobin A1c Calcium Phosphorus Magnesium Iron 13 L TIBC 431 % Saturation 3 L Ferritin Total Bilirubin AST ALT Alkaline Phosphatase Total Protein Albumin Globulin Albumin/Globulin Ratio Triglycerides Cholesterol LDL Cholesterol Direct HDL Cholesterol Vitamin B12 Folate Free T4 TSH 3rd Generation Urine Color Urine Clarity Urine pH Ur Specific [place] Urine Protein Urine Glucose (UA) Urine Ketones Urine Blood Urine Nitrate Urine Bilirubin Urine Urobilinogen Ur Leukocyte Esterase Urine WBC (Auto) Urine RBC (Auto) Ur Squamous Epith Cells Stool Occult Blood Positive H IgG Hepatitis A IgM Ab Negative Hep Bs Antigen Negative Hep B Core IgM Ab Negative Hepatitis C Antibody Negative HIV 1&2 Antibody Screen Blood Type Antibody Screen 04/29/18 04/29/18 04/30/18 21:03 21:03 07:09 WBC RBC Hgb Hct MCV MCH MCHC RDW Plt Count MPV Neut % (Auto) Lymph % (Auto) [place] % (Auto) Eos % (Auto) Baso % (Auto) Neut # (Auto) Lymph # (Auto) [place] # (Auto) Eos # (Auto) Baso # (Auto) Differential Comment Retic Count PT INR APTT Sodium 142 Potassium 4.0 Chloride 111 H Carbon Dioxide 24 Anion Gap 11 BUN 11 Creatinine 0.6 L Est GFR ( Amer) > 60 Est GFR (Non-Af Amer) > 60 POC Glucose (mg/dL) Random Glucose 125 H Hemoglobin A1c Calcium 7.8 L Phosphorus 3.1 Magnesium 2.0 Iron TIBC % Saturation 3 L Ferritin Total Bilirubin 0.8 AST 44 H ALT 33 Alkaline Phosphatase 83 Total Protein 5.8 L Albumin 2.9 L Globulin 2.9 Albumin/Globulin Ratio 1.0 Triglycerides 99 D Cholesterol 88 LDL Cholesterol Direct 47 HDL Cholesterol 23 L Vitamin B12 908 Folate 13.7 Free T4 TSH 3rd Generation 2.29 Urine Color Urine Clarity Urine pH Ur Specific [place] Urine Protein Urine Glucose (UA) Urine Ketones Urine Blood Urine Nitrate Urine Bilirubin Urine Urobilinogen Ur Leukocyte Esterase Urine WBC (Auto) Urine RBC (Auto) Ur Squamous Epith Cells Stool Occult Blood IgG Hepatitis A IgM Ab Hep Bs Antigen Hep B Core IgM Ab Hepatitis C Antibody HIV 1&2 Antibody Screen Negative Blood Type Antibody Screen 04/30/18 04/30/18 04/30/18 07:09 07:09 07:09 WBC 2.2 L RBC 2.89 L Hgb 6.4 L* Hct 20.4 L MCV 70.7 L D MCH 22.2 L MCHC 31.4 L RDW 25.2 H Plt Count 80 L MPV 8.5 Neut % (Auto) 56.0 Lymph % (Auto) 29.5 [place] % (Auto) 8.1 Eos % (Auto) 5.3 H Baso % (Auto) 1.1 Neut # (Auto) 1.2 L Lymph # (Auto) 0.6 L [place] # (Auto) 0.2 Eos # (Auto) 0.1 Baso # (Auto) 0.0 Differential Comment Retic Count PT INR APTT Sodium Potassium Chloride Carbon Dioxide Anion Gap BUN Creatinine Est GFR ( Amer) Est GFR (Non-Af Amer) POC Glucose (mg/dL) Random Glucose Hemoglobin A1c 5.7 Calcium Phosphorus Magnesium Iron TIBC % Saturation Ferritin Total Bilirubin AST ALT Alkaline Phosphatase Total Protein Albumin Globulin Albumin/Globulin Ratio Triglycerides Cholesterol LDL Cholesterol Direct HDL Cholesterol Vitamin B12 Folate Free T4 1.06 TSH 3rd Generation Urine Color Urine Clarity Urine pH Ur Specific [place] Urine Protein Urine Glucose (UA) Urine Ketones Urine Blood Urine Nitrate Urine Bilirubin Urine Urobilinogen Ur Leukocyte Esterase Urine WBC (Auto) Urine RBC (Auto) Ur Squamous Epith Cells Stool Occult Blood IgG Hepatitis A IgM Ab Hep Bs Antigen Hep B Core IgM Ab Hepatitis C Antibody HIV 1&2 Antibody Screen Blood Type Antibody Screen 04/30/18 04/30/18 04/30/18 07:09 09:38 12:53 WBC RBC Hgb Hct MCV MCH MCHC RDW Plt Count MPV Neut % (Auto) Lymph % (Auto) [place] % (Auto) Eos % (Auto) Baso % (Auto) Neut # (Auto) Lymph # (Auto) [place] # (Auto) Eos # (Auto) Baso # (Auto) Differential Comment Retic Count PT 13.8 H INR 1.3 APTT 31 Sodium Potassium Chloride Carbon Dioxide Anion Gap BUN Creatinine Est GFR ( Amer) Est GFR (Non-Af Amer) POC Glucose (mg/dL) 122 H Random Glucose Hemoglobin A1c Calcium Phosphorus Magnesium Iron TIBC % Saturation Ferritin Total Bilirubin AST ALT Alkaline Phosphatase Total Protein Albumin Globulin Albumin/Globulin Ratio Triglycerides Cholesterol LDL Cholesterol Direct HDL Cholesterol Vitamin B12 Folate Free T4 TSH 3rd Generation Urine Color Urine Clarity Urine pH Ur Specific [place] Urine Protein Urine Glucose (UA) Urine Ketones Urine Blood Urine Nitrate Urine Bilirubin Urine Urobilinogen Ur Leukocyte Esterase Urine WBC (Auto) Urine RBC (Auto) Ur Squamous Epith Cells Stool Occult Blood IgG 1186.0 Hepatitis A IgM Ab Hep Bs Antigen Hep B Core IgM Ab Hepatitis C Antibody HIV 1&2 Antibody Screen Blood Type Antibody Screen Attending/Attestation - Attestation I have personally seen and examined this patient.: Yes I have fully participated in the care of the patient.: Yes I have reviewed all pertinent clinical information: Yes Notes (Text): 04/30/18 13:34 I have seen and examined patient with GI fellow. Agree with above documentation with the following additions. In brief, this is a 57 year old female with history of HTN, DM, hyperlipidemia, iron deficiency anemia, pancytopenia who was sent to hospital for evaluation of progressive anemia. She notes recently that she has developed dyspnea on minimal exertion along with passage of dark colored stool for the past few weeks. She denies abdominal pain, nausea, vomiting, fever/chills, or weight loss. She does endorse NSAID use a few times per week for relief of headaches. She has a longstanding history of pancytopenia but cannot provide additional details regarding workup. She denies excessive ETOH use and had a colonoscopy over 20 years ago which was normal as per patient. Review of vitals from today are normal. DM / HTN Hyperlipidemia Iron deficiency anemia Pancytopenia Transaminitis, suspected cirrhosis based on clinical presentation - NPO - Continue to monitor H/H, s/p PRBC transfusion - Continue with PPI therapy - Suggest urgent EGD evaluation today given progressive anemia in setting of NSAID use and suspected cirrhosis - r/o peptic ulcer disease, or varices - Obtain abdominal US - Further management pending endoscopic evaluation and imaging studies - Will continue to monitor patient clinical course
[2018-04-30] MEDS ORDERED: Ferric Sodium Gluconat Complex 62.5 mg/5 ml Vial IVPB SCH (14:30)
[2018-04-30] MEDS: cefTRIAXone IV 1 gm in Dextros 50 ML IVPB SCH (17:59)
[2018-04-30] MEDS: Ferric Sodium Gluconat Complex 62.5 mg/5 ml Vial IVPB SCH (18:10)
[2018-05-01 06:44] LABS: INR 1.3; PROTHROMBIN TIME 14.5 SECONDS (9.7-12.2)
[2018-05-01 06:45] LABS: BASO % 1.3 % (0.0-2.0); EOS # 0.1 K/uL (0.0-0.7); EOS % 6.1 % (0.0-4.0); HEMOGLOBIN 7.7 g/dL (11.0-16.0); LYMPH # 0.6 K/uL (1.0-4.3); MEAN CELL VOLUME 72.3 fL (81.0-99.0); MEAN CORPUSCULAR HEMOGLOBIN 22.9 pg (27.0-31.0); MEAN CORPUSCULAR HGB CONC 31.7 g/dL (33.0-37.0); MEAN PLATELET VOLUME 8.6 fL (7.2-11.7); MONO # 0.2 K/uL (0.0-0.8); MONO % 9.2 % (0.0-10.0); NEUT # 1.3 K/uL (1.8-7.0); NEUT % 58.4 % (50.0-75.0); NRBC % 0.1 % (0.0-2.0); RBC 3.34 Mil/uL (3.80-5.20); RED CELL DISTRIBUTION WIDTH 26.7 % (11.5-14.5); WHITE BLOOD COUNT 2.3 K/uL (4.8-10.8)
[2018-05-01 07:00] LABS: ALB/GLOB RATIO 1.1 (1.0-2.1); ALBUMIN 3.1 g/dL (3.5-5.0); ALT/SGPT 44 U/L (9-52); AST/SGOT 59 U/L (14-36); BLOOD UREA NITROGEN 10 mg/dL (7-17); CALCIUM 8.4 mg/dl (8.6-10.4); GFR AFRICAN-AMERICAN > 60; GFR NON-AFRICAN AMERICAN > 60
--- NOTE | 2018-05-01 07:14 | CP.PCM.PN ---
<Nima Cameron - Last Filed: 05/01/18 11:09> Subjective - Date & Time of Evaluation Date of Evaluation: 05/01/18 Time of Evaluation: 07:12 - Subjective Subjective: PGY-[address] Emerson. No acute events noted overnight. Patient did not offer any complaints. Stated she felt a little tired. When asked if she's lost weight in the past year she stated 15 lbs. To go for liver CT triple phase today and diagnostic paracentesis. Objective - Vital Signs/Intake and Output Vital Signs (last 24 hours): Temp Pulse Resp BP Pulse Ox 98.1 F 69 20 121/60 97 04/30/18 23:40 05/01/18 03:52 04/30/18 23:40 04/30/18 23:40 04/30/18 23:40 Intake and Output: 05/01/18 05/01/18 06:59 18:59 Intake Total 555 Balance 555 - Medications Medications: Current Medications Carvedilol (Coreg) 3.125 mg PO BID [facility] Last Admin: 04/30/18 17:58 Dose: 3.125 mg Ferric Sodium Gluconate Complex (Ferrlecit) 125 mg IVPB Q24H [facility] Stop: 05/08/18 19:01 Last Admin: 04/30/18 18:10 Dose: 125 mg Octreotide Acetate 1,250 mcg/ (Sodium Chloride) 250 mls @ 10 mls/hr IV .Q24H [facility]; 50 MCG/HR PRN Reason: Protocol Last Admin: 04/30/18 13:02 Dose: 10 mls/hr Ceftriaxone Sodium (Rocephin Iv 1 Gm Duplex) 50 mls @ 100 mls/hr IVPB Q24H [facility] PRN Reason: Protocol Last Admin: 04/30/18 17:59 Dose: 100 mls/hr Ondansetron HCl (Zofran Inj) 4 mg IVP Q8H [facility] Last Admin: 05/01/18 05:38 Dose: 4 mg Pantoprazole Sodium (Protonix Inj) 40 mg IVP Q12 [facility] Last Admin: 04/30/18 21:26 Dose: 40 mg - Labs Labs: 05/01/18 06:34 05/01/18 06:34 PT 14.5 SECONDS (9.7-12.2) H 06/29/18 06:34 INR 1.3 05/01/18 06:34 APTT 31 SECONDS (21-34) 04/30/18 07:09 - Additional Findings Additional findings: - Constitutional Appears: No Acute Distress - Head Exam Head Exam: ATRAUMATIC, NORMAL INSPECTION - Eye Exam Eye Exam: EOMI, Normal appearance, PERRL. absent: Scleral icterus Pupil Exam: NORMAL ACCOMODATION - ENT Exam ENT Exam: Mucous Membranes Moist - Respiratory Exam Respiratory Exam: Clear to Auscultation Bilateral, NORMAL BREATHING PATTERN - Cardiovascular Exam Cardiovascular Exam: Diastolic murmur, REGULAR RHYTHM, RRR, +S1, +S2. absent: JVD - GI/Abdominal Exam GI & Abdominal Exam: Normal Bowel Sounds, Soft. absent: Distended, Firm, Organomegaly, Tenderness - Rectal Exam Rectal Exam: NORMAL INSPECTION. absent: Black Stool, Bloody Stool, Hemorrhoids - Extremities Exam Extremities exam: Positive for: normal capillary refill, pedal edema, pedal pulses present. Negative for: tenderness - Neurological Exam Neurological exam: Alert, CN II-XII Intact, Oriented x3 - Psychiatric Exam Psychiatric exam: Normal Affect, Normal Mood - Skin Skin Exam: Normal Color Assessment and Plan - Assessment and Plan (Free Text) Assessment: Iron deficiency Anemia - Based on iron studies this is iron deficiency anemia possibly secondary to chronic upper GI bleed however patient w/ pancytopenic thus neoplasm not excluded - GI consult: Dr. Perales --> help appreciated * patient is s/p EGD 04/30 - Hem/Onc Consult: Dr. Dinero --> help appreciated Diagnostics: - Iron studies * retic count 2.9 (high), iron 13 (low), tibc 431 (normal), % saturation 13 (low ), ferritin 7.4 (low) - H/H on admission: 4.8/16.4 - Monitor H/H goal to keep Hgb~7.0, no further transfusion, do not want to increase portal pressure due to esophageal varices and risk of re-bleeding - Stool Occult Blood: Positive - EKG: NSR @80bpm - EGD performed on 04/30 showed esophageal and gastric varices and band ligation with 3 bands. Multiple superficial gastric antral ulcers likely from NSAID use, no active bleeding Therapy: - 2 units of PRBC given 04/29 - 1 unit of PRBC given 04/30 - Ferrlicit 125mg IVP QD Cirrhosis consult IR, Dr Gipson for paracentesis due to ascites seen on US * f/u diagnostic paracentesis Diagnostics: - F/U Body fluid culture, cytology, albumin/peritoneal fluid, cell count, total protein peritoneal fluid Imaging: Abd US 04/29: * Cirrhosis of liver. Splenomegaly. Ascites. Cholelithiasis. F/U liver triple phase CT Meds: Lasix 40mg PO QD Spironolactone 100mg PO QD Esophageal and Gastric Varices - EGD performed on 04/30 showed esophageal and gastric varices and band ligation with 3 bands. Multiple superficial gastric antral ulcers likely from NSAID use, no active bleeding - Monitor H/H goal to keep Hgb~7.0, no further transfusion, do not want to increase portal pressure due to esophageal varices and risk of re-bleeding Therapy: - Octreotide 1250mcg IV 50mcg/hr for 3 days, started 04/30 - Carvedilol 3.125mg PO BID Multiple Superficial Gastric Antral Ulcers - Likely NSAID induced - EGD performed on 04/30 showed esophageal and gastric varices and band ligation with 3 bands. Multiple superficial gastric antral ulcers likely from NSAID use, no active bleeding Therapy: - Protonix 40mg IVP Q12H Thrombocytopeia Possibly 2/2 to cirhosis - Platelets 88 - Hem/Onc Consult: Dr. Dinero --> help appreciated - hep panel negative, hiv negative Abd US 04/29: * Cirrhosis of liver. Splenomegaly. Ascites. Cholelithiasis. Neutropenia - WBC 2.3 - Hem/Onc Consult: Dr. Dinero --> help appreciated - hep panel negative, hiv negative Therapy: - Ceftriaxone 1g IV Q24H for 7 days (started 04/30, can switch to po cirpo prior to discharge) LE Swelling - possibly secondary to new onset heart failure due to chronic anemia - EKG: NSR @80bpm - Chest Xray 04/30 showed mild cardiomegaly and pulmonary venous congestion, no lobar pneumonia. - f/u ECHO Meds: Lasix 40mg PO QD Spironolactone 100mg PO QD History of Diabetes Type II - A1c 5.7 - Lipid Panel normal except HDL low at 23 History of HTN - b/p stable - TSH and free T4 NORMAL - Continue to monitor Prophylaxis - VTE contraindication secondary to anemia - SCDs contraindication secondary to LE edema - Protonix 40mg IVP BID - Heart Healthy/Low Carb Diet <Emerson,Peter H - Last Filed: 05/01/18 16:18> Objective - Vital Signs/Intake and Output Vital Signs (last 24 hours): Temp Pulse Resp BP Pulse Ox 98.1 F 60 20 118/67 97 05/01/18 07:00 05/01/18 12:00 05/01/18 07:00 05/01/18 10:20 05/01/18 07:00 Intake and Output: 05/01/18 05/01/18 06:59 18:59 Intake Total 555 380 Balance 555 380 - Medications Medications: Current Medications Carvedilol (Coreg) 3.125 mg PO BID [facility] Last Admin: 05/01/18 10:20 Dose: 3.125 mg Ferric Sodium Gluconate Complex (Ferrlecit) 125 mg IVPB Q24H [facility] Stop: 05/08/18 19:01 Last Admin: 04/30/18 18:10 Dose: 125 mg Furosemide (Lasix) 40 mg PO DAILY [facility] Last Admin: 05/01/18 10:20 Dose: 40 mg Octreotide Acetate 1,250 mcg/ (Sodium Chloride) 250 mls @ 10 mls/hr IV .Q24H E[facility]; 50 MCG/HR PRN Reason: Protocol Last Admin: 05/01/18 10:21 Dose: 10 mls/hr Ceftriaxone Sodium (Rocephin Iv 1 Gm Duplex) 50 mls @ 100 mls/hr IVPB Q24H [facility] PRN Reason: Protocol Last Admin: 04/30/18 17:59 Dose: 100 mls/hr Lactulose (Enulose) 20 gm PO BID [facility] Last Admin: 05/01/18 10:20 Dose: 20 gm Ondansetron HCl (Zofran Inj) 4 mg IVP Q8H [facility] Last Admin: 05/01/18 12:05 Dose: 4 mg Pantoprazole Sodium (Protonix Inj) 40 mg IVP Q12 [facility] Last Admin: 05/01/18 10:21 Dose: 40 mg Rifaximin (Xifaxan) 550 mg PO BID [facility] PRN Reason: Protocol Last Admin: 05/01/18 10:20 Dose: 550 mg Spironolactone (Aldactone) 100 mg PO DAILY [facility] Last Admin: 05/01/18 10:21 Dose: 100 mg - Labs Labs: 05/01/18 06:34 05/01/18 06:34 PT 14.5 SECONDS (9.7-12.2) H 05/01/18 06:34 INR 1.3 05/01/18 06:34 APTT 31 SECONDS (21-34) 04/30/18 07:09 Attending/Attestation - Attestation I have personally seen and examined this patient.: Yes I have fully participated in the care of the patient.: Yes I have reviewed all pertinent clinical information, including history, physical exam and plan: Yes Notes (Text): 05/01/18 16:18 Medical attending: Patient was seen and examined by me, agrees the above note by medical instructor. The patient was not in any acute distress when we saw her. She's had 3 units of PRBC so far. The hemoglobin as of this morning had increased up to 7.7. As mentioned above in the resident note the patient underwent EGD yesterday where she had placement of 3 bands for varices. It is felt that the patient probably was overusing NSAID medication. Later on today she's can try to get a paracentesis for diagnostic purposes. There is pending a liver CT to further evaluate her liver cirrhosis Thank you very much, Johny Emerson
--- NOTE | 2018-05-01 08:44 | CP.PCM.PN ---
<Bette Fontaine - Last Filed: 05/01/18 11:53> Subjective - Date & Time of Evaluation Date of Evaluation: 05/01/18 Time of Evaluation: 08:00 - Subjective Subjective: GI Fellow PGY4 Progress Note Pt seen and evaluated at bedside, no issues overnight per nursing. No GI bleeding. ROS: A 12pt ROS was negative except as above. Objective - Vital Signs/Intake and Output Vital Signs (last 24 hours): Temp Pulse Resp BP Pulse Ox 98.1 F 62 20 129/56 L 97 05/01/18 07:00 05/01/18 07:00 05/01/18 07:00 05/01/18 07:00 05/01/18 07:00 Intake and Output: 05/01/18 05/01/18 06:59 18:59 Intake Total 555 Balance 555 - Medications Medications: Current Medications Carvedilol (Coreg) 3.125 mg PO BID [facility] Last Admin: 04/30/18 17:58 Dose: 3.125 mg Ferric Sodium Gluconate Complex (Ferrlecit) 125 mg IVPB Q24H [facility] Stop: 05/08/18 19:01 Last Admin: 04/30/18 18:10 Dose: 125 mg Octreotide Acetate 1,250 mcg/ (Sodium Chloride) 250 mls @ 10 mls/hr IV .Q24H [facility]; 50 MCG/HR PRN Reason: Protocol Last Admin: 04/30/18 13:02 Dose: 10 mls/hr Ceftriaxone Sodium (Rocephin Iv 1 Gm Duplex) 50 mls @ 100 mls/hr IVPB Q24H [facility] PRN Reason: Protocol Last Admin: 04/30/18 17:59 Dose: 100 mls/hr Ondansetron HCl (Zofran Inj) 4 mg IVP Q8H [facility] Last Admin: 05/01/18 05:38 Dose: 4 mg Pantoprazole Sodium (Protonix Inj) 40 mg IVP Q12 [facility] Last Admin: 04/30/18 21:26 Dose: 40 mg - Labs Labs: 05/01/18 06:34 05/01/18 06:34 PT 14.5 SECONDS (9.7-12.2) H 05/01/18 06:34 INR 1.3 05/01/18 06:34 APTT 31 SECONDS (21-34) 04/30/18 07:09 - Constitutional Appears: Non-toxic, No Acute Distress - Head Exam Head Exam: ATRAUMATIC, NORMAL INSPECTION, NORMOCEPHALIC - Eye Exam Eye Exam: EOMI, Normal appearance, PERRL Pupil Exam: PERRL - ENT Exam ENT Exam: Mucous Membranes Moist - Neck Exam Neck Exam: Full ROM, Normal Inspection - Respiratory Exam Respiratory Exam: Clear to Ausculation Bilateral, NORMAL BREATHING PATTERN - Cardiovascular Exam Cardiovascular Exam: REGULAR RHYTHM, RRR, +S1, +S2 - GI/Abdominal Exam GI & Abdominal Exam: Soft, Tenderness, Normal Bowel Sounds. absent: Distended, Firm, Guarding, Organomegaly - Rectal Exam Rectal Exam: Deferred - Extremities Exam Extremities Exam: Full ROM, Pedal Edema - Back Exam Back Exam: NORMAL INSPECTION - Neurological Exam Neurological Exam: Alert, Awake, Oriented x3 - Psychiatric Exam Psychiatric exam: Flat Affect - Skin Skin Exam: Dry, Intact, Normal Color, Warm Assessment and Plan - Assessment and Plan (Free Text) Assessment: This is a 57 year old female with past medical history HTN, Diabetes, HLD, Iron deficiency Anemia, Pancytopenia, Elevated LFTs presents to the ER because her PMD told her to come due to her low Hgb of 4.8 in the office. 1. Acute Anemia, UGIB 2. Esophageal varcies s/p banding 3. Superficial gastric ulcers likely NSAID induced 4. Cirrhosis-etiology unclear, MELD 11 today 5. Ascites 6. Pancytopenia 7. Elevated LFTs Plan: -Continue supportive care with resuscitation -Acute anemia Hgb 4.8-->6.4-->7.7 s/p 3U PRBCs -No overt GI bleeding now,hemodynamically stable -Monitor H/H goal to keep Hgb~7.0, no further transfusion, do not want to increase portal pressure due to esophageal varices and risk of re-bleeding -Cirrhosis of unclear etiology-pt denies etoh hx? hepatitis panel negative, autoimmune serologies pending -Abd US with cirrhosis and moderate ascites -CT Liver ordered for further evaluation of cirrhosis and r/o HCC -Recommend diagnostic paracentesis today, fluid studies ordered to r/o SBP and underlying etiology for cirrhosis -Started on Coreg for esophageal varices -Continue IV abx Rocephin, abx total for 7 days, can switch to po abx ciprofloxacin prior to discharge -IV Octretotide for Variceal bleed for total 3 days -Will start lactulose and rifaxamin for HE grade 1 -Start lasix and spironolactone, especially in setting of ascites and LE edema -Pt with multiple superficial gastric ulcers, no active bleeding, s/p biopsy, path pending, appeared to be from NSIAD use will need to r/o H.pylori -PPI BID -Avoid NSAIDs -Hematology cs -Advance to clear liquid diet today -Will continue to follow closely MELD today 11 <Lion Perales Y - Last Filed: 05/01/18 12:08> Objective - Vital Signs/Intake and Output Vital Signs (last 24 hours): Temp Pulse Resp BP Pulse Ox 98.1 F 62 20 118/67 97 05/01/18 07:00 05/01/18 07:00 05/01/18 07:00 05/01/18 10:20 05/01/18 07:00 Intake and Output: 05/01/18 05/01/18 06:59 18:59 Intake Total 555 Balance 555 - Medications Medications: Current Medications Carvedilol (Coreg) 3.125 mg PO BID [facility] Last Admin: 05/01/18 10:20 Dose: 3.125 mg Ferric Sodium Gluconate Complex (Ferrlecit) 125 mg IVPB Q24H [facility] Stop: 05/08/18 19:01 Last Admin: 04/30/18 18:10 Dose: 125 mg Furosemide (Lasix) 40 mg PO DAILY [facility] Last Admin: 05/01/18 10:20 Dose: 40 mg Octreotide Acetate 1,250 mcg/ (Sodium Chloride) 250 mls @ 10 mls/hr IV .Q24H ELLY; 50 MCG/HR PRN Reason: Protocol Last Admin: 05/01/18 10:21 Dose: 10 mls/hr Ceftriaxone Sodium (Rocephin Iv 1 Gm Duplex) 50 mls @ 100 mls/hr IVPB Q24H [facility] PRN Reason: Protocol Last Admin: 04/30/18 17:59 Dose: 100 mls/hr Lactulose (Enulose) 20 gm PO BID [facility] Last Admin: 05/01/18 10:20 Dose: 20 gm Ondansetron HCl (Zofran Inj) 4 mg IVP Q8H [facility] Last Admin: 05/01/18 05:38 Dose: 4 mg Pantoprazole Sodium (Protonix Inj) 40 mg IVP Q12 [facility] Last Admin: 05/01/18 10:21 Dose: 40 mg Rifaximin (Xifaxan) 550 mg PO BID [facility] PRN Reason: Protocol Last Admin: 05/01/18 10:20 Dose: 550 mg Spironolactone (Aldactone) 100 mg PO DAILY [facility] Last Admin: 05/01/18 10:21 Dose: 100 mg - Labs Labs: 05/01/18 06:34 05/01/18 06:34 PT 14.5 SECONDS (9.7-12.2) H 05/01/18 06:34 INR 1.3 05/01/18 06:34 APTT 31 SECONDS (21-34) 04/30/18 07:09 Attending/Attestation - Attestation I have personally seen and examined this patient.: Yes I have fully participated in the care of the patient.: Yes I have reviewed all pertinent clinical information, including history, physical exam and plan: Yes Notes (Text): 05/01/18 12:05 I have seen and examined patient with GI fellow. No acute events overnight, she denies abdominal pain, nausea, vomiting. She went for paracentesis today however procedure was aborted due to lack of adequate amount of ascitic fluid. Review of vitals from today are normal. Cirrhosis - unclear etiology, viral hepatitis panel negative, MELD 11 HTN / DM Pancytopenia Iron deficiency anemia s/p EGD yesterday showing multiple antral ulcers, esophageal varices s/p band ligation - Clear liquid diet as tolerated - H/H stable, s/p PRBC transfusion, continue to monitor - Awaiting results of triple phase liver CT - Continue with PPI, octreotide therapy - Continue with antibiotic therapy to complete 5 day course - Continue with lactulose / xifaxan therapy for HE prevention - Will continue to monitor patient clinical course
--- NOTE | 2018-05-01 11:29 | PCM.IRP ---
History of Present Illness - History of Present Illness History of Present Illness: Pt Yasemin nuñez to IR dept for paracentesis. US performed and there is not enough fluid for paracentesis. Objective - Vital Signs/Intake and Output Vital Signs (last 24 hours): Vital Signs - 24 hr 04/30/18 04/30/18 04/30/18 13:19 13:34 13:49 Temperature 98.5 F 98.2 F 98.6 F Pulse Rate 70 69 70 Respiratory 18 17 18 Rate Blood Pressure 120/59 L 123/67 122/64 O2 Sat by Pulse Oximetry 04/30/18 04/30/18 04/30/18 13:55 14:19 15:00 Temperature 98.2 F 98.7 F Pulse Rate 80 72 66 Respiratory 18 18 Rate Blood Pressure 121/59 L 122/71 O2 Sat by Pulse 98 Oximetry 04/30/18 04/30/18 04/30/18 16:00 17:03 23:01 Temperature 98.1 F Pulse Rate 71 66 70 Respiratory 20 Rate Blood Pressure 134/67 O2 Sat by Pulse Oximetry 04/30/18 05/01/18 05/01/18 23:40 03:52 07:00 Temperature 98.1 F 98.1 F Pulse Rate 66 69 62 Respiratory 20 20 Rate Blood Pressure 121/60 129/56 L O2 Sat by Pulse 97 97 Oximetry 05/01/18 10:20 Temperature Pulse Rate Respiratory Rate Blood Pressure 118/67 O2 Sat by Pulse Oximetry Intake and Output (last 12 hours): Intake & Output 04/30/18 05/01/18 05/01/18 18:59 06:59 18:59 Intake Total 390 555 Balance 390 555 Intake: Intake, IV Amount 60 230 Left Hand 60 230 Oral 5 Blood Product 325 325 Red Blood Cells Cpd As1 325 Lr Unit [id number] Other: # Voids Urine, Voided 1 - Medications Medications: Current Medications Carvedilol (Coreg) 3.125 mg PO BID [facility] Last Admin: 05/01/18 10:20 Dose: 3.125 mg Ferric Sodium Gluconate Complex (Ferrlecit) 125 mg IVPB Q24H [facility] Stop: 05/08/18 19:01 Last Admin: 04/30/18 18:10 Dose: 125 mg Furosemide (Lasix) 40 mg PO DAILY [facility] Last Admin: 05/01/18 10:20 Dose: 40 mg Octreotide Acetate 1,250 mcg/ (Sodium Chloride) 250 mls @ 10 mls/hr IV .Q24H ELLY; 50 MCG/HR PRN Reason: Protocol Last Admin: 05/01/18 10:21 Dose: 10 mls/hr Ceftriaxone Sodium (Rocephin Iv 1 Gm Duplex) 50 mls @ 100 mls/hr IVPB Q24H [facility] PRN Reason: Protocol Last Admin: 04/30/18 17:59 Dose: 100 mls/hr Lactulose (Enulose) 20 gm PO BID [facility] Last Admin: 05/01/18 10:20 Dose: 20 gm Ondansetron HCl (Zofran Inj) 4 mg IVP Q8H [facility] Last Admin: 05/01/18 05:38 Dose: 4 mg Pantoprazole Sodium (Protonix Inj) 40 mg IVP Q12 [facility] Last Admin: 05/01/18 10:21 Dose: 40 mg Rifaximin (Xifaxan) 550 mg PO BID [facility] PRN Reason: Protocol Last Admin: 05/01/18 10:20 Dose: 550 mg Spironolactone (Aldactone) 100 mg PO DAILY [facility] Last Admin: 05/01/18 10:21 Dose: 100 mg - Labs Labs (last 24 hours): Laboratory Results - last 24 hr 04/29/18 04/30/18 05/01/18 17:58 12:53 06:34 WBC 2.3 L RBC 3.34 L Hgb 7.7 L Hct 24.1 L MCV 72.3 L MCH 22.9 L MCHC 31.7 L RDW 26.7 H Plt Count 76 L MPV 8.6 Neut % (Auto) 58.4 Lymph % (Auto) 25.0 [place] % (Auto) 9.2 Eos % (Auto) 6.1 H Baso % (Auto) 1.3 Neut # (Auto) 1.3 L Lymph # (Auto) 0.6 L [place] # (Auto) 0.2 Eos # (Auto) 0.1 Baso # (Auto) 0.0 PT INR Sodium Potassium Chloride Carbon Dioxide Anion Gap BUN Creatinine Est GFR ( Amer) Est GFR (Non-Af Amer) Random Glucose Calcium Phosphorus Magnesium Total Bilirubin AST ALT Alkaline Phosphatase Total Protein Albumin Globulin Albumin/Globulin Ratio IgG 1186.0 Blood Type O POSITIVE Antibody Screen Negative 05/01/18 05/01/18 06:34 06:34 WBC RBC Hgb Hct MCV MCH MCHC RDW Plt Count MPV Neut % (Auto) Lymph % (Auto) [place] % (Auto) Eos % (Auto) Baso % (Auto) Neut # (Auto) Lymph # (Auto) [place] # (Auto) Eos # (Auto) Baso # (Auto) PT 14.5 H INR 1.3 Sodium 142 Potassium 3.7 Chloride 108 H Carbon Dioxide 26 Anion Gap 11 BUN 10 Creatinine 0.6 L Est GFR ( Amer) > 60 Est GFR (Non-Af Amer) > 60 Random Glucose 111 H Calcium 8.4 L Phosphorus 3.6 Magnesium 2.0 Total Bilirubin 1.6 H AST 59 H D ALT 44 Alkaline Phosphatase 87 Total Protein 6.0 L Albumin 3.1 L Globulin 2.9 Albumin/Globulin Ratio 1.1 IgG Blood Type Antibody Screen
[2018-05-01] MEDS ORDERED: Iodixanol 320 MG/ML 100 ML BOTTLE IV ONE (11:44)
--- NOTE | 2018-05-01 11:48 | CP.PCM.CON ---
History of Present Illness - History of Present Illness History of Present Illness: 57 year old female with a history of HTN, DM, pancytopenia with iron deficiency anemia, admitted with severe anemia. The patient was seen by her PMD and found her hgb to be low and referred her to the hospital. In the ER her hgb was found to be 4.8. She does admit to fatigue and not eating well. She was seen by me in the outpatient setting for her pancytopenia and iron deficiency. She was placed on oral iron with instructions for repeat CBC and GI followup. She did not return for her follow up appointment. She denies abnormal bleeding and bruising. Imaging of her abdomen is concerning for liver cirrhosis and splenomegaly. She is receiving PRBC transfusion and notes to feeling better. Past medical history: HTN, DM, pancytopenia, iron deficiency anemia Past surgical history: Denies Family history: Father had pancreatic cancer Social history: Denies tobacco, alcohol, and illicit drug use Allergies: NKA Review of systems: All remaining review of systems including HEENT, cardiovascular, respiratory, gastrointestinal, genitourinary, musculoskeletal, dermatologic, neurologic, and psychiatric are negative unless mentioned in the HPI. Past Patient History - Infectious Disease Hx of Infectious Diseases: None - Past Medical History & Family History Past Medical History?: Yes - Past Social History Smoking Status: Never Smoked - HEMATOLOGICAL/ONCOLOGICAL Other/Comment: LOW PLT'S PER PT Meds Allergies/Adverse Reactions: Allergies Allergy/AdvReac Type Severity Reaction Status Date / Time No Known Allergies Allergy Verified 04/29/18 15:56 - Medications Medications: Current Medications Carvedilol (Coreg) 3.125 mg PO BID [facility] Last Admin: 05/01/18 10:20 Dose: 3.125 mg Ferric Sodium Gluconate Complex (Ferrlecit) 125 mg IVPB Q24H [facility] Stop: 05/08/18 19:01 Last Admin: 04/30/18 18:10 Dose: 125 mg Furosemide (Lasix) 40 mg PO DAILY [facility] Last Admin: 05/01/18 10:20 Dose: 40 mg Octreotide Acetate 1,250 mcg/ (Sodium Chloride) 250 mls @ 10 mls/hr IV .Q24H [facility]; 50 MCG/HR PRN Reason: Protocol Last Admin: 05/01/18 10:21 Dose: 10 mls/hr Ceftriaxone Sodium (Rocephin Iv 1 Gm Duplex) 50 mls @ 100 mls/hr IVPB Q24H [facility] PRN Reason: Protocol Last Admin: 04/30/18 17:59 Dose: 100 mls/hr Lactulose (Enulose) 20 gm PO BID [facility] Last Admin: 05/01/18 10:20 Dose: 20 gm Ondansetron HCl (Zofran Inj) 4 mg IVP Q8H [facility] Last Admin: 05/01/18 05:38 Dose: 4 mg Pantoprazole Sodium (Protonix Inj) 40 mg IVP Q12 [facility] Last Admin: 05/01/18 10:21 Dose: 40 mg Rifaximin (Xifaxan) 550 mg PO BID [facility] PRN Reason: Protocol Last Admin: 05/01/18 10:20 Dose: 550 mg Spironolactone (Aldactone) 100 mg PO DAILY [facility] Last Admin: 05/01/18 10:21 Dose: 100 mg Physical Exam - Head Exam Head Exam: ATRAUMATIC - Eye Exam Eye Exam: Normal appearance - ENT Exam ENT Exam: Mucous Membranes Dry - Respiratory Exam Respiratory Exam: NORMAL BREATHING PATTERN - Cardiovascular Exam Cardiovascular Exam: +S1, +S2 - GI/Abdominal Exam GI & Abdominal Exam: Normal Bowel Sounds - Extremities Exam Extremities exam: Positive for: pedal edema - Neurological Exam Neurological exam: Oriented x3 - Psychiatric Exam Psychiatric exam: Normal Affect, Normal Mood - Skin Skin Exam: Warm Results - Vital Signs Recent Vital Signs: Last Vital Signs Temp 98.1 F 05/01/18 07:00 Pulse 62 05/01/18 07:00 Resp 20 05/01/18 07:00 BP 118/67 05/01/18 10:20 Pulse Ox 97 05/01/18 07:00 - Labs Result Diagrams: 05/01/18 06:34 05/01/18 06:34 Labs: Laboratory Results - last 24 hr 04/29/18 04/30/18 05/01/18 17:58 12:53 06:34 WBC 2.3 L RBC 3.34 L Hgb 7.7 L Hct 24.1 L MCV 72.3 L MCH 22.9 L MCHC 31.7 L RDW 26.7 H Plt Count 76 L MPV 8.6 Neut % (Auto) 58.4 Lymph % (Auto) 25.0 [place] % (Auto) 9.2 Eos % (Auto) 6.1 H Baso % (Auto) 1.3 Neut # (Auto) 1.3 L Lymph # (Auto) 0.6 L [place] # (Auto) 0.2 Eos # (Auto) 0.1 Baso # (Auto) 0.0 PT INR Sodium Potassium Chloride Carbon Dioxide Anion Gap BUN Creatinine Est GFR ( Amer) Est GFR (Non-Af Amer) Random Glucose Calcium Phosphorus Magnesium Total Bilirubin AST ALT Alkaline Phosphatase Total Protein Albumin Globulin Albumin/Globulin Ratio IgG 1186.0 Blood Type O POSITIVE Antibody Screen Negative 05/01/18 05/01/18 06:34 06:34 WBC RBC Hgb Hct MCV MCH MCHC RDW Plt Count MPV Neut % (Auto) Lymph % (Auto) [place] % (Auto) Eos % (Auto) Baso % (Auto) Neut # (Auto) Lymph # (Auto) [place] # (Auto) Eos # (Auto) Baso # (Auto) PT 14.5 H INR 1.3 Sodium 142 Potassium 3.7 Chloride 108 H Carbon Dioxide 26 Anion Gap 11 BUN 10 Creatinine 0.6 L Est GFR ( Amer) > 60 Est GFR (Non-Af Amer) > 60 Random Glucose 111 H Calcium 8.4 L Phosphorus 3.6 Magnesium 2.0 Total Bilirubin 1.6 H AST 59 H D ALT 44 Alkaline Phosphatase 87 Total Protein 6.0 L Albumin 3.1 L Globulin 2.9 Albumin/Globulin Ratio 1.1 IgG Blood Type Antibody Screen Assessment & Plan (1) Pancytopenia Assessment and Plan: 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 Status: Acute
--- NOTE | 2018-05-01 13:16 | US ---
PROCEDURE: Date of Study: 05/01/2018 HISTORY: Cirrhosis, ascites TECHNIQUE: Limited US of abdomen performed for paracentesis. US showed no significant ascites. IMPRESSION: No significant ascites.
--- NOTE | 2018-05-01 13:42 | CT ---
PROCEDURE: CT Abdomen with and without intravenous contrast HISTORY: cirrhosis COMPARISON: None. TECHNIQUE: Axial images of the abdomen from lung bases to iliac crest with and without intravenous contrast enhancement. Postcontrast images were obtained in the hepatic arterial and portal venous phases of enhancement. Coronal and sagittal reformats generated. Intravenous contrast Dose: 100 mL Visipaque 320 Radiation dose: Total exam DLP = 2002.78 mGy-cm. This CT exam was performed using one or more of the following dose reduction techniques: Automated exposure control, adjustment of the mA and/or kV according to patient size, and/or use of iterative reconstruction technique. FINDINGS: LOWER THORAX: Unremarkable. LIVER: Nodular contour consistent with hepatic cirrhosis. No hepatic mass. No early arterial enhancement appreciated. No intrahepatic biliary ductal dilatation. GALLBLADDER AND BILE DUCTS: Cholelithiasis. No mural thickening. PANCREAS: No mass. No peripancreatic fluid or inflammatory change. SPLEEN: Splenomegaly. The spleen measures approximately 15.5 cm in greatest dimension. No mass. ADRENALS: Unremarkable. No mass. KIDNEYS AND URETERS: Unremarkable. No hydronephrosis. No solid mass. VASCULATURE: Unremarkable. No aortic aneurysm. BOWEL: Mural thickening of cecum and proximal ascending colon. Nonspecific. Consider infectious etiology. Please note that the entirety of the bowel is not included in this examination as this was performed for evaluation of abdomen only. APPENDIX: Not included PERITONEUM: Ascites. LYMPH NODES: Unremarkable. No enlarged lymph nodes. Bones No acute fracture. OTHER FINDINGS: None. IMPRESSION: Ascites. Hepatic cirrhosis. Splenomegaly. Cholelithiasis without evidence of cholecystitis. Mural thickening of cecum and proximal ascending colon consistent with nonspecific colitis. Consider infectious etiology.
--- NOTE | 2018-05-01 18:03 | CARD ---
APPROVED REPORT EXAM: Two-dimensional and M-mode echocardiogram with Doppler and color Doppler. Other Information Quality : GoodRhythm : NSR INDICATION ANEMIA/BLOOD TRANS M-Mode DIMENSIONS RVDd1.15 (2.1-3.2cm)Left Atrium (MM)4.28 (2.5-4.0cm) IVSd0.61 (0.7-1.1cm)Aortic Root3.04 (2.2-3.7cm) LVDd5.56 (4.0-5.6cm)Aortic Cusp Exc.1.82 (1.5-2.0cm) PWd0.73 (0.7-1.1cm)FS (%) 39 % LVDs3.40 (2.0-3.8cm)LVEF (%)69 (>50%) Aortic Valve AoV Peak Pqvqfnis454.6cm/Felix Peak GR.14mmHg Mitral Valve MV E Tyyjojgo38.6cm/sMV A Cbwohdfl42.8cm/sE/A ratio1.1 TDI E/Lateral E'0.0E/Medial E'0.0 Tricuspid Valve TR Peak [id number]/sTR Peak Gr.[id number] LEFT VENTRICLE The left ventricle is normal size. There is normal left ventricular wall thickness. The left ventricular function is normal. The left ventricular ejection fraction is within the normal range. No regional wall motion abnormalities noted. The left ventricular diastolic function is normal. No left ventricle thrombus noted on this study. There is no ventricular septal defect visualized. There is no left ventricular aneurysm. There is no mass noted in the left ventricle. RIGHT VENTRICLE The right ventricle is normal size. There is normal right ventricular wall thickness. The right ventricular systolic function is normal. ATRIA The left atrium size is normal. The right atrium size is normal. The interatrial septum is intact with no evidence for an atrial septal defect. AORTIC VALVE The aortic valve is normal in structure and function. No aortic regurgitation is present. There is no aortic valvular stenosis. There is no aortic valvular vegetation. MITRAL VALVE The mitral valve is normal in structure and function. There is no evidence of mitral valve prolapse. There is no mitral valve stenosis. There is trace mitral valve regurgitation noted. TRICUSPID VALVE The tricuspid valve is normal in structure and function. There is mild tricuspid valve regurgitation noted. Estimated PA systolic pressure is 35 mm Hg. There is no tricuspid valve prolapse or vegetation. There is no tricuspid valve stenosis. PULMONIC VALVE The pulmonary valve is normal in structure and function. There is no pulmonic valvular regurgitation. There is no pulmonic valvular stenosis. GREAT VESSELS The aortic root is normal in size. The ascending aorta is normal in size. The pulmonary artery is normal. The IVC is normal in size and collapses >50% with inspiration. PERICARDIAL EFFUSION The pericardium appears normal. There is no pleural effusion. <Conclusion> Normal left ventricular systolic function and Doppler.
[2018-05-01] MEDS: cefTRIAXone IV 1 gm in Dextros 50 ML IVPB SCH (18:19)
[2018-05-01] MEDS: Ferric Sodium Gluconat Complex 62.5 mg/5 ml Vial IVPB SCH (18:22)
[2018-05-02 06:45] LABS: BASO % 0.8 % (0.0-2.0); EOS # 0.1 K/uL (0.0-0.7); EOS % 4.5 % (0.0-4.0); HEMOGLOBIN 8.1 g/dL (11.0-16.0); LYMPH # 0.7 K/uL (1.0-4.3); LYMPH % 21.4 % (20.0-40.0); MEAN CELL VOLUME 72.3 fL (81.0-99.0); MEAN CORPUSCULAR HEMOGLOBIN 22.7 pg (27.0-31.0); MEAN CORPUSCULAR HGB CONC 31.5 g/dL (33.0-37.0); MEAN PLATELET VOLUME 8.7 fL (7.2-11.7); MONO # 0.3 K/uL (0.0-0.8); NEUT % 64.3 % (50.0-75.0); NRBC % 0.2 % (0.0-2.0); RBC 3.56 Mil/uL (3.80-5.20); RED CELL DISTRIBUTION WIDTH 26.8 % (11.5-14.5)
[2018-05-02 07:17] LABS: ALB/GLOB RATIO 1.1 (1.0-2.1); ALBUMIN 3.2 g/dL (3.5-5.0); ALT/SGPT 43 U/L (9-52); AST/SGOT 51 U/L (14-36); BLOOD UREA NITROGEN 8 mg/dL (7-17); CALCIUM 8.2 mg/dl (8.6-10.4); GFR AFRICAN-AMERICAN > 60; GFR NON-AFRICAN AMERICAN > 60
--- NOTE | 2018-05-02 08:21 | CP.PCM.PN ---
Subjective - Date & Time of Evaluation Date of Evaluation: 05/02/18 Time of Evaluation: 08:14 - Subjective Subjective: Patient seen and examined, resting in bed comfortably. No acute events overnight. She reports vague right sided abdominal pain which has been present since arrival to hospital. She otherwise denies nausea, vomiting, fever/ chills. Tolerating PO liquids without difficulty, no bowel movements overnight. Review of vitals from today are normal. 12 point review of systems performed, negative aside from mentioned above. Objective - Vital Signs/Intake and Output Vital Signs (last 24 hours): Temp Pulse Resp BP Pulse Ox 98.5 F 66 20 117/57 L 95 05/02/18 07:00 05/02/18 07:00 05/02/18 07:00 05/02/18 07:00 05/02/18 07:00 Intake and Output: 05/02/18 05/02/18 06:59 18:59 Intake Total 470 Balance 470 - Medications Medications: Current Medications Carvedilol (Coreg) 3.125 mg PO BID [facility] Last Admin: 05/01/18 18:19 Dose: 3.125 mg Ferric Sodium Gluconate Complex (Ferrlecit) 125 mg IVPB Q24H [facility] Stop: 05/08/18 19:01 Last Admin: 05/01/18 18:22 Dose: 125 mg Furosemide (Lasix) 40 mg PO DAILY [facility] Last Admin: 05/01/18 10:20 Dose: 40 mg Octreotide Acetate 1,250 mcg/ (Sodium Chloride) 250 mls @ 10 mls/hr IV .Q24H [facility]; 50 MCG/HR PRN Reason: Protocol Last Admin: 05/01/18 10:21 Dose: 10 mls/hr Ceftriaxone Sodium (Rocephin Iv 1 Gm Duplex) 50 mls @ 100 mls/hr IVPB Q24H [facility] PRN Reason: Protocol Last Admin: 05/01/18 18:19 Dose: 100 mls/hr Lactulose (Enulose) 20 gm PO BID [facility] Last Admin: 05/01/18 18:20 Dose: 20 gm Ondansetron HCl (Zofran Inj) 4 mg IVP Q8H [facility] Last Admin: 05/02/18 04:53 Dose: 4 mg Pantoprazole Sodium (Protonix Inj) 40 mg IVP Q12 [facility] Last Admin: 06/29/18 21:44 Dose: 40 mg Rifaximin (Xifaxan) 550 mg PO BID [facility] PRN Reason: Protocol Last Admin: 05/01/18 18:22 Dose: 550 mg Spironolactone (Aldactone) 100 mg PO DAILY [facility] Last Admin: 05/01/18 10:21 Dose: 100 mg - Labs Labs: 05/02/18 06:36 05/02/18 06:36 PT 14.5 SECONDS (9.7-12.2) H 05/01/18 06:34 INR 1.3 05/01/18 06:34 APTT 31 SECONDS (21-34) 04/30/18 07:09 - Constitutional Appears: Non-toxic, No Acute Distress - Head Exam Head Exam: NORMAL INSPECTION - Eye Exam Eye Exam: EOMI, Normal appearance - ENT Exam ENT Exam: Mucous Membranes Moist - Respiratory Exam Respiratory Exam: Clear to Ausculation Bilateral - Cardiovascular Exam Cardiovascular Exam: +S1, +S2 - GI/Abdominal Exam GI & Abdominal Exam: Soft, Normal Bowel Sounds Additional comments: non tender to palpation in four quadrants - Extremities Exam Additional comments: trace pedal edema b/l lower extremities - Skin Skin Exam: Dry, Intact, Normal Color, Warm Assessment and Plan - Assessment and Plan (Free Text) Assessment: Decompensated cirrhosis - etiology unclear (viral hepatitis and prelim autoimmune workup negative, possibly secondary to PHAM) HTN / DM Iron deficiency anemia Pancytopenia s/p EGD showing multiple antral ulcers, esopageal/gastric varices s/p band ligation Plan: - Will advance to soft diet as tolerated - H/H stable, continue to monitor, follow up hematology recommendations - Continue with PPI therapy - Continue with octreotide infusion for additional 24 hours - Continue with antibiotic therapy to complete 5 day course - Continue with lactulose/xifaxan for HE prophylaxis - EGD biopsy results reviewed, HP negative - CT imaging shows mural thickening of cecum, though patient asymptomatic. Will certainly require colonoscopy evaluation for malignancy in setting of iron deficiency anemia which should be scheduled as outpatient. Will continue to monitor patient clinical course.
[2018-05-02] MEDS ORDERED: Potassium Chloride 20 mEq ER Tab PO ONE (09:00)
--- NOTE | 2018-05-02 09:08 | CP.PCM.PN ---
Subjective - Date & Time of Evaluation Date of Evaluation: 05/02/18 Time of Evaluation: 09:00 - Subjective Subjective: Patient was seen and examined by me. She explained she did ok overnight. Tolerated her diet. Denied chest pain, denied shortness of breath. Denied headache. The patient underwent liver triple phase CT yesterday to further assess her liver - there was thickening of cecum. And GI is recommending outpatient colonoscopy evaluation for malignancy in setting of iron deficiency anemia. She is still on octreotide at this time for another 24 hr. As mentioned previously she had EGD and required 3 bands for varicies. Hgb is now increased to 8.1 at this time. Possible she can be discharged tommorow if she does well. Objective - Vital Signs/Intake and Output Vital Signs (last 24 hours): Temp Pulse Resp BP Pulse Ox 98.5 F 66 20 117/57 L 95 05/02/18 07:00 05/02/18 07:00 05/02/18 07:00 05/02/18 07:00 05/02/18 07:00 Intake and Output: 05/02/18 05/02/18 06:59 18:59 Intake Total 470 Balance 470 - Medications Medications: Current Medications Carvedilol (Coreg) 3.125 mg PO BID [facility] Last Admin: 05/01/18 18:19 Dose: 3.125 mg Ferric Sodium Gluconate Complex (Ferrlecit) 125 mg IVPB Q24H [facility] Stop: 05/08/18 19:01 Last Admin: 05/01/18 18:22 Dose: 125 mg Furosemide (Lasix) 40 mg PO DAILY [facility] Last Admin: 05/01/18 10:20 Dose: 40 mg Octreotide Acetate 1,250 mcg/ (Sodium Chloride) 250 mls @ 10 mls/hr IV .Q24H [facility]; 50 MCG/HR PRN Reason: Protocol Last Admin: 05/01/18 10:21 Dose: 10 mls/hr Ceftriaxone Sodium (Rocephin Iv 1 Gm Duplex) 50 mls @ 100 mls/hr IVPB Q24H [facility] PRN Reason: Protocol Last Admin: 05/01/18 18:19 Dose: 100 mls/hr Lactulose (Enulose) 20 gm PO BID [facility] Last Admin: 05/01/18 18:20 Dose: 20 gm Ondansetron HCl (Zofran Inj) 4 mg IVP Q8H [facility] Last Admin: 05/02/18 04:53 Dose: 4 mg Pantoprazole Sodium (Protonix Inj) 40 mg IVP Q12 [facility] Last Admin: 05/01/18 21:44 Dose: 40 mg Rifaximin (Xifaxan) 550 mg PO BID [facility] PRN Reason: Protocol Last Admin: 05/01/18 18:22 Dose: 550 mg Spironolactone (Aldactone) 100 mg PO DAILY [facility] Last Admin: 05/01/18 10:21 Dose: 100 mg - Labs Labs: 05/02/18 06:36 05/02/18 06:36 PT 14.5 SECONDS (9.7-12.2) H 05/01/18 06:34 INR 1.3 05/01/18 06:34 APTT 31 SECONDS (21-34) 04/30/18 07:09 - Constitutional Appears: No Acute Distress, Unkempt - Head Exam Head Exam: NORMAL INSPECTION - Eye Exam Eye Exam: EOMI, Normal appearance - ENT Exam ENT Exam: Mucous Membranes Moist - Respiratory Exam Respiratory Exam: Clear to Ausculation Bilateral, NORMAL BREATHING PATTERN - Cardiovascular Exam Cardiovascular Exam: REGULAR RHYTHM - GI/Abdominal Exam GI & Abdominal Exam: Soft, Normal Bowel Sounds - Neurological Exam Neurological Exam: Alert, Awake, Oriented x3 Neuro motor strength exam: Left Upper Extremity: 4, Right Upper Extremity: 4, Left Lower Extremity: 4, Right Lower Extremity: 4 - Psychiatric Exam Psychiatric exam: Depressed, Flat Affect - Skin Skin Exam: Normal Color, Warm Assessment and Plan - Assessment and Plan (Free Text) Assessment: Assessment: Esophageal and Gastric Varices 05/02: Hgb is now increased 8.1. Per GI she needs to be on octrotide for another 24 hrs. She is tolerating her diet. No nausea or vommitting. She is on lasix and aldactone and BB coreg. EGD performed on 04/30 showed esophageal and gastric varices and band ligation with 3 bands. Multiple superficial gastric antral ulcers likely from NSAID use, no active bleeding Monitor H/H goal to keep Hgb~7.0, no further transfusion, do not want to increase portal pressure due to esophageal varices and risk of re-bleeding Therapy: Octreotide 1250mcg IV 50mcg/hr for 3 days, started 04/30 Carvedilol 3.125mg PO BID Iron deficiency Anemia 05/02: Has been getting IV ferrlcit. Hgb 8.1 - Based on iron studies this is iron deficiency anemia possibly secondary to chronic upper GI bleed however patient w/ pancytopenic thus neoplasm not excluded - GI consult: Dr. Perales --> help appreciated * patient is s/p EGD 04/30 - Hem/Onc Consult: Dr. Dinero --> help appreciated Diagnostics: - Iron studies * retic count 2.9 (high), iron 13 (low), tibc 431 (normal), % saturation 13 (low ), ferritin 7.4 (low) - H/H on admission: 4.8/16.4 - Monitor H/H goal to keep Hgb~7.0, no further transfusion, do not want to increase portal pressure due to esophageal varices and risk of re-bleeding - Stool Occult Blood: Positive - EKG: NSR @80bpm - EGD performed on 04/30 showed esophageal and gastric varices and band ligation with 3 bands. Multiple superficial gastric antral ulcers likely from NSAID use, Therapy: - 2 units of PRBC given 04/29 - 1 unit of PRBC given 04/30 - Ferrlicit 125mg IVP QD Cirrhosis 05/02: The paracentesis was not done, there was not enough fluid seen. 05/01 consult IR, Dr Gipson for paracentesis due to ascites seen on US f/u diagnostic paracentesis for body fluid culture, cytology, albumin/peritoneal fluid, cell count, total protein peritoneal fluid Imaging: Abd US 04/29: * Cirrhosis of liver. Splenomegaly. Ascites. Cholelithiasis. F/U liver triple phase CT Meds: Lasix 40mg PO QD Spironolactone 100mg PO QD Multiple Superficial Gastric Antral Ulcers - Likely NSAID induced - EGD performed on 04/30 showed esophageal and gastric varices and band ligation with 3 bands. Multiple superficial gastric antral ulcers likely from NSAID use, no active bleeding Therapy: - Protonix 40mg IVP Q12H Thrombocytopeia Possibly 2/2 to cirhosis - Platelets 88 - Hem/Onc Consult: Dr. Dinero --> help appreciated - hep panel negative, hiv negative Abd US 04/29: * Cirrhosis of liver. Splenomegaly. Ascites. Cholelithiasis. Neutropenia 05/02 Today is afebrile. WBC was 3.0 - Hem/Onc Consult: Dr. Dinero --> help appreciated - hep panel negative, hiv negative Therapy: - Ceftriaxone 1g IV Q24H for 7 days (started 04/30, can switch to po cirpo prior to discharge) LE Swelling - possibly secondary to new onset heart failure due to chronic anemia - EKG: NSR @80bpm - Chest Xray 04/30 showed mild cardiomegaly and pulmonary venous congestion, no lobar pneumonia. - f/u ECHO Meds: Lasix 40mg PO QD Spironolactone 100mg PO QD History of Diabetes Type II 05/02: Accuchecks are ok, stable in the low 100s - A1c 5.7 - Lipid Panel normal except HDL low at 23 History of HTN - b/p stable - TSH and free T4 NORMAL - Continue to monitor Prophylaxis - VTE contraindication secondary to anemia - SCDs contraindication secondary to LE edema - Protonix 40mg IVP BID - Heart Healthy/Low Carb Diet
[2018-05-02] MEDS: Ferric Sodium Gluconat Complex 62.5 mg/5 ml Vial IVPB SCH (19:38)
[2018-05-02] MEDS: cefTRIAXone IV 1 gm in Dextros 50 ML IVPB SCH (19:38)
--- NOTE | 2018-05-02 23:40 | CP.PCM.PN ---
Subjective - Date & Time of Evaluation Date of Evaluation: 05/01/18 Time of Evaluation: 12:00 - Subjective Subjective: Feeling better. Objective - Vital Signs/Intake and Output Vital Signs (last 24 hours): Temp Pulse Resp BP Pulse Ox 98.2 F 61 18 103/68 95 05/02/18 15:07 05/02/18 18:00 05/02/18 15:07 05/02/18 15:07 05/02/18 15:07 Intake and Output: 05/02/18 05/03/18 18:59 06:59 Intake Total 480 Balance 480 - Medications Medications: Current Medications Carvedilol (Coreg) 3.125 mg PO BID [facility] Last Admin: 05/02/18 18:13 Dose: Not Given Ferric Sodium Gluconate Complex (Ferrlecit) 125 mg IVPB Q24H [facility] Stop: 05/08/18 19:01 Last Admin: 05/02/18 19:38 Dose: 125 mg Furosemide (Lasix) 40 mg PO DAILY [facility] Last Admin: 05/02/18 10:24 Dose: 40 mg Octreotide Acetate 1,250 mcg/ (Sodium Chloride) 250 mls @ 10 mls/hr IV .Q24H [facility]; 50 MCG/HR PRN Reason: Protocol Last Admin: 05/02/18 22:11 Dose: 10 mls/hr Ceftriaxone Sodium (Rocephin Iv 1 Gm Duplex) 50 mls @ 100 mls/hr IVPB Q24H [facility] PRN Reason: Protocol Last Admin: 05/02/18 19:38 Dose: 100 mls/hr Lactulose (Enulose) 20 gm PO BID [facility] Last Admin: 05/02/18 18:10 Dose: 20 gm Ondansetron HCl (Zofran Inj) 4 mg IVP Q8H [facility] Last Admin: 05/02/18 19:46 Dose: 4 mg Pantoprazole Sodium (Protonix Inj) 40 mg IVP Q12 [facility] Last Admin: 05/02/18 22:11 Dose: 40 mg Rifaximin (Xifaxan) 550 mg PO BID [facility] PRN Reason: Protocol Last Admin: 05/02/18 18:09 Dose: 550 mg Spironolactone (Aldactone) 100 mg PO DAILY [facility] Last Admin: 05/02/18 09:59 Dose: 100 mg - Labs Labs: 05/02/18 06:36 05/02/18 06:36 PT 14.5 SECONDS (9.7-12.2) H 05/01/18 06:34 INR 1.3 05/01/18 06:34 APTT 31 SECONDS (21-34) 04/30/18 07:09 - Head Exam Head Exam: ATRAUMATIC - Eye Exam Eye Exam: Normal appearance - ENT Exam ENT Exam: Mucous Membranes Dry - Respiratory Exam Respiratory Exam: NORMAL BREATHING PATTERN - Cardiovascular Exam Cardiovascular Exam: +S1, +S2 - GI/Abdominal Exam GI & Abdominal Exam: Normal Bowel Sounds Assessment and Plan (1) Pancytopenia Assessment & Plan: cirrhosis related, splenic sequestration iron deficiency likely from chronic GI blood loss given portal HTN transfusion support and will start IV iron Status: Acute
--- NOTE | 2018-05-02 23:51 | CP.PCM.PN ---
Subjective - Date & Time of Evaluation Date of Evaluation: 05/02/18 Time of Evaluation: 13:45 - Subjective Subjective: No complaints, EGD findings noted. Objective - Vital Signs/Intake and Output Vital Signs (last 24 hours): Temp Pulse Resp BP Pulse Ox 98.2 F 61 18 103/68 95 05/02/18 15:07 05/02/18 18:00 05/02/18 15:07 05/02/18 15:07 05/02/18 15:07 Intake and Output: 05/02/18 05/03/18 18:59 06:59 Intake Total 480 Balance 480 - Medications Medications: Current Medications Carvedilol (Coreg) 3.125 mg PO BID ON LICENSE OF [facility] Last Admin: 05/02/18 18:13 Dose: Not Given Ferric Sodium Gluconate Complex (Ferrlecit) 125 mg IVPB Q24H ON LICENSE OF [facility] Stop: 05/08/18 19:01 Last Admin: 05/02/18 19:38 Dose: 125 mg Furosemide (Lasix) 40 mg PO DAILY ON LICENSE OF [facility] Last Admin: 05/02/18 10:24 Dose: 40 mg Octreotide Acetate 1,250 mcg/ (Sodium Chloride) 250 mls @ 10 mls/hr IV .Q24H [facility]; 50 MCG/HR PRN Reason: Protocol Last Admin: 05/02/18 22:11 Dose: 10 mls/hr Ceftriaxone Sodium (Rocephin Iv 1 Gm Duplex) 50 mls @ 100 mls/hr IVPB Q24H [facility] PRN Reason: Protocol Last Admin: 05/02/18 19:38 Dose: 100 mls/hr Lactulose (Enulose) 20 gm PO BID [facility] Last Admin: 05/02/18 18:10 Dose: 20 gm Ondansetron HCl (Zofran Inj) 4 mg IVP Q8H [facility] Last Admin: 05/02/18 19:46 Dose: 4 mg Pantoprazole Sodium (Protonix Inj) 40 mg IVP Q12 [facility] Last Admin: 05/02/18 22:11 Dose: 40 mg Rifaximin (Xifaxan) 550 mg PO BID [facility] PRN Reason: Protocol Last Admin: 05/02/18 18:09 Dose: 550 mg Spironolactone (Aldactone) 100 mg PO DAILY [facility] Last Admin: 05/02/18 09:59 Dose: 100 mg - Labs Labs: 05/02/18 06:36 05/02/18 06:36 PT 14.5 SECONDS (9.7-12.2) H 05/01/18 06:34 INR 1.3 05/01/18 06:34 APTT 31 SECONDS (21-34) 04/30/18 07:09 - Head Exam Head Exam: ATRAUMATIC - Eye Exam Eye Exam: Normal appearance - ENT Exam ENT Exam: Mucous Membranes Dry - Respiratory Exam Respiratory Exam: NORMAL BREATHING PATTERN - Cardiovascular Exam Cardiovascular Exam: +S1, +S2 - GI/Abdominal Exam GI & Abdominal Exam: Normal Bowel Sounds Assessment and Plan (1) Pancytopenia Assessment & Plan: liver cirrhosis, splenic sequestration iron deficiency likely from chronic GI blood loss given portal HTN transfusion support and on IV iron will check HIV and hepatitis panel Status: Acute
[2018-05-03 00:55] VITALS: RESP 20
[2018-05-03 06:58] LABS: EOS # 0.1 K/uL (0.0-0.7); EOS % 4.3 % (0.0-4.0); HEMOGLOBIN 8.4 g/dL (11.0-16.0); LYMPH # 0.7 K/uL (1.0-4.3); LYMPH % 24.5 % (20.0-40.0); MEAN CELL VOLUME 72.2 fL (81.0-99.0); MEAN CORPUSCULAR HEMOGLOBIN 23.3 pg (27.0-31.0); MEAN CORPUSCULAR HGB CONC 32.2 g/dL (33.0-37.0); MEAN PLATELET VOLUME 8.3 fL (7.2-11.7); MONO # 0.3 K/uL (0.0-0.8); MONO % 10.7 % (0.0-10.0); NEUT # 1.6 K/uL (1.8-7.0); NEUT % 59.5 % (50.0-75.0); NRBC % 0.2 % (0.0-2.0); RBC 3.6 Mil/uL (3.80-5.20); RED CELL DISTRIBUTION WIDTH 27.3 % (11.5-14.5); WHITE BLOOD COUNT 2.8 K/uL (4.8-10.8)
--- NOTE | 2018-05-03 07:41 | CP.PCM.PN ---
Subjective - Date & Time of Evaluation Date of Evaluation: 05/03/18 Time of Evaluation: 07:36 - Subjective Subjective: Patient seen and examined, sitting comfortably at side of bed. No acute events overnight, she reports intermittent right sided abdominal pain but slowly improving. She otherwise denies nausea, vomiting, fever/chills. Tolerating PO liquids without difficulty. 12 point review of systems performed, negative aside from mentioned above. Objective - Vital Signs/Intake and Output Vital Signs (last 24 hours): Temp Pulse Resp BP Pulse Ox 98.6 F 63 20 114/48 L 96 05/02/18 23:35 05/03/18 03:57 05/02/18 23:35 05/02/18 23:35 05/02/18 23:35 Intake and Output: 05/03/18 05/03/18 06:59 18:59 Intake Total 370 Balance 370 - Medications Medications: Current Medications Carvedilol (Coreg) 3.125 mg PO BID [facility] Last Admin: 05/02/18 18:13 Dose: Not Given Ferric Sodium Gluconate Complex (Ferrlecit) 125 mg IVPB Q24H [facility] Stop: 05/08/18 19:01 Last Admin: 05/02/18 19:38 Dose: 125 mg Furosemide (Lasix) 40 mg PO DAILY [facility] Last Admin: 05/02/18 10:24 Dose: 40 mg Ceftriaxone Sodium (Rocephin Iv 1 Gm Duplex) 50 mls @ 100 mls/hr IVPB Q24H [facility] PRN Reason: Protocol Last Admin: 05/02/18 19:38 Dose: 100 mls/hr Lactulose (Enulose) 20 gm PO BID [facility] Last Admin: 05/02/18 18:10 Dose: 20 gm Ondansetron HCl (Zofran Inj) 4 mg IVP Q8H [facility] Last Admin: 05/03/18 05:02 Dose: 4 mg Pantoprazole Sodium (Protonix Inj) 40 mg IVP Q12 [facility] Last Admin: 05/02/18 22:11 Dose: 40 mg Rifaximin (Xifaxan) 550 mg PO BID [facility] PRN Reason: Protocol Last Admin: 05/02/18 18:09 Dose: 550 mg Spironolactone (Aldactone) 100 mg PO DAILY [facility] Last Admin: 05/02/18 09:59 Dose: 100 mg - Labs Labs: 05/03/18 06:53 06/30/18 06:36 PT 14.5 SECONDS (9.7-12.2) H 05/01/18 06:34 INR 1.3 05/01/18 06:34 APTT 31 SECONDS (21-34) 04/30/18 07:09 - Constitutional Appears: Non-toxic, No Acute Distress - Head Exam Head Exam: NORMAL INSPECTION - Eye Exam Eye Exam: EOMI, Normal appearance - ENT Exam ENT Exam: Mucous Membranes Moist - Respiratory Exam Respiratory Exam: Clear to Ausculation Bilateral - Cardiovascular Exam Cardiovascular Exam: +S1, +S2 - GI/Abdominal Exam GI & Abdominal Exam: Soft, Normal Bowel Sounds Additional comments: non tender to palpation in four quadrants - Extremities Exam Extremities Exam: Normal Inspection - Skin Skin Exam: Dry, Intact, Normal Color, Warm Assessment and Plan - Assessment and Plan (Free Text) Assessment: Decompensated cirrhosis, etiology unclear though suspect PHAM related DM / HTN Iron deficiency anemia Pancytopenia s/p EGD showing multiple gastric ulcers and esophageal/gastric varices s/p band ligation Plan: - Advance to 2g Na diabetic soft diet as tolerated - Continue with PPI therapy - May discontinue octreotide - Continue with antibiotic therapy to complete 5 day course - Continue with lactulose/xifaxan therapy for HE prevention - Continue with diuretic therapy, monitor electrolytes - H/H stable, follow up hematology recommendations - From GI standpoint, patient stable and ok to discharge home. She would need repeat EGD within 2 months for repeat variceal banding and she also requires screening colonoscopy given anemia and abnormal CT imaging. Office contact information provided to patient. Will sign off case, please reconsult as necessary, thank you.
[2018-05-03 07:51] LABS: ALBUMIN 3.1 g/dL (3.5-5.0); ALT/SGPT 31 U/L (9-52); AST/SGOT 44 U/L (14-36); BLOOD UREA NITROGEN 6 mg/dL (7-17); CALCIUM 8.1 mg/dl (8.6-10.4); GFR AFRICAN-AMERICAN > 60; GFR NON-AFRICAN AMERICAN > 60
--- NOTE | 2018-05-03 10:05 | CP.PCM.PN ---
Subjective - Date & Time of Evaluation Date of Evaluation: 05/03/18 Time of Evaluation: 09:45 - Subjective Subjective: Patient was seen and examined by me She is now off of the octreotide ggt Also off of the Xifaxin and lactulose as well Her Hgb is now increased to 8.4 On exam she has RUQ area pain, mild. The patient was able to also walk very slowly to the nurses station and back to the room with assistance. Her telemetry was in the mid 60s and sinus Her gait was slightly unsteady but she did not need assistance. She explains that in the past she would not be able to walk this far without becomming short of breath, palpitations - probably due to chronic anemia Possible can be DC tommorow on 05/04. The PT has recommened home with visiting PT. We need to get someone to explain to her in Malagasy to avoid NSAIDS. She also asked for a note to return to work after several days of rest at home. Objective - Vital Signs/Intake and Output Vital Signs (last 24 hours): Temp Pulse Resp BP Pulse Ox 98 F 59 L 20 122/67 94 L 05/03/18 07:00 05/03/18 09:45 05/03/18 07:00 05/03/18 09:45 05/03/18 07:00 Intake and Output: 05/03/18 05/03/18 06:59 18:59 Intake Total 370 Balance 370 - Medications Medications: Current Medications Carvedilol (Coreg) 3.125 mg PO BID [facility] Last Admin: 05/02/18 18:13 Dose: Not Given Ferric Sodium Gluconate Complex (Ferrlecit) 125 mg IVPB Q24H [facility] Stop: 05/08/18 19:01 Last Admin: 05/02/18 19:38 Dose: 125 mg Furosemide (Lasix) 40 mg PO DAILY [facility] Last Admin: 05/02/18 10:24 Dose: 40 mg Lactulose (Enulose) 20 gm PO BID [facility] Last Admin: 05/02/18 18:10 Dose: 20 gm Ondansetron HCl (Zofran Inj) 4 mg IVP Q8H [facility] Last Admin: 05/03/18 05:02 Dose: 4 mg Pantoprazole Sodium (Protonix Inj) 40 mg IVP Q12 [facility] Last Admin: 05/02/18 22:11 Dose: 40 mg Spironolactone (Aldactone) 100 mg PO DAILY [facility] Last Admin: 05/02/18 09:59 Dose: 100 mg - Labs Labs: 05/03/18 06:53 05/03/18 06:53 PT 14.5 SECONDS (9.7-12.2) H 05/01/18 06:34 INR 1.3 05/01/18 06:34 APTT 31 SECONDS (21-34) 04/30/18 07:09 - Constitutional Appears: No Acute Distress, Unkempt, Chronically Ill - Head Exam Head Exam: NORMAL INSPECTION, NORMOCEPHALIC - Eye Exam Eye Exam: EOMI, Normal appearance - ENT Exam ENT Exam: Mucous Membranes Moist - Respiratory Exam Respiratory Exam: Clear to Ausculation Bilateral, NORMAL BREATHING PATTERN - Cardiovascular Exam Cardiovascular Exam: REGULAR RHYTHM - GI/Abdominal Exam GI & Abdominal Exam: Soft, Tenderness, Normal Bowel Sounds Additional comments: RUQ area mild tenderness - Neurological Exam Neurological Exam: Alert, Awake, Oriented x3 Neuro motor strength exam: Left Upper Extremity: 4, Right Upper Extremity: 4, Left Lower Extremity: 4, Right Lower Extremity: 4 - Psychiatric Exam Psychiatric exam: Depressed, Flat Affect - Skin Skin Exam: Normal Color, Warm Assessment and Plan - Assessment and Plan (Free Text) Plan: Assessment: Esophageal and Gastric Varices 05/03: Hgb now 8.4. She is off of the octrotide ggt. Still reporting very mild ROSA pain. Will try pain meds. 05/02: Hgb is now increased 8.1. Per GI she needs to be on octrotide for another 24 hrs. She is tolerating her diet. No nausea or vommitting. She is on lasix and aldactone and BB coreg. EGD performed on 04/30 showed esophageal and gastric varices and band ligation with 3 bands. Multiple superficial gastric antral ulcers likely from NSAID use, no active bleeding Monitor H/H goal to keep Hgb~7.0, no further transfusion, do not want to increase portal pressure due to esophageal varices and risk of re-bleeding Therapy: Octreotide 1250mcg IV 50mcg/hr for 3 days, started 04/30 Carvedilol 3.125mg PO BID Iron deficiency Anemia 05/03: Hgb again better 05/02: Has been getting IV ferrlcit. Hgb 8.1 - Based on iron studies this is iron deficiency anemia possibly secondary to chronic upper GI bleed however patient w/ pancytopenic thus neoplasm not excluded - GI consult: Dr. Perales --> help appreciated * patient is s/p EGD 04/30 - Hem/Onc Consult: Dr. Dinero --> help appreciated Diagnostics: - Iron studies * retic count 2.9 (high), iron 13 (low), tibc 431 (normal), % saturation 13 (low ), ferritin 7.4 (low) - H/H on admission: 4.8/16.4 - Monitor H/H goal to keep Hgb~7.0, no further transfusion, do not want to increase portal pressure due to esophageal varices and risk of re-bleeding - Stool Occult Blood: Positive - EKG: NSR @80bpm - EGD performed on 04/30 showed esophageal and gastric varices and band ligation with 3 bands. Multiple superficial gastric antral ulcers likely from NSAID use, Therapy: - 2 units of PRBC given 04/29 - 1 unit of PRBC given 04/30 - Ferrlicit 125mg IVP QD Liver Cirrhosis - etiology not clear. Maybe PHAM 05/02: The paracentesis was not done, there was not enough fluid seen. 05/01 consult IR, Dr Gipson for paracentesis due to ascites seen on US f/u diagnostic paracentesis for body fluid culture, cytology, albumin/peritoneal fluid, cell count, total protein peritoneal fluid Imaging: Abd US 04/29: * Cirrhosis of liver. Splenomegaly. Ascites. Cholelithiasis. F/U liver triple phase CT Meds: Lasix 40mg PO QD Spironolactone 100mg PO QD Multiple Superficial Gastric Antral Ulcers - Likely NSAID induced - EGD performed on 04/30 showed esophageal and gastric varices and band ligation with 3 bands. Multiple superficial gastric antral ulcers likely from NSAID use, no active bleeding Therapy: - Protonix 40mg IVP Q12H Thrombocytopeia Possibly 2/2 to cirhosis - Platelets 88 - Hem/Onc Consult: Dr. Dinero --> help appreciated - hep panel negative, hiv negative Abd US 04/29: * Cirrhosis of liver. Splenomegaly. Ascites. Cholelithiasis. Neutropenia 05/02 Today is afebrile. WBC was 3.0 - Hem/Onc Consult: Dr. Dinero --> help appreciated - hep panel negative, hiv negative Therapy: - Ceftriaxone 1g IV Q24H for 7 days (started 04/30, can switch to po cirpo prior to discharge) LE Swelling - possibly secondary to new onset heart failure due to chronic anemia - EKG: NSR @80bpm - Chest Xray 04/30 showed mild cardiomegaly and pulmonary venous congestion, no lobar pneumonia. - f/u ECHO Meds: Lasix 40mg PO QD Spironolactone 100mg PO QD History of Diabetes Type II 05/02: Accuchecks are ok, stable in the low 100s - A1c 5.7 - Lipid Panel normal except HDL low at 23 History of HTN - b/p stable - TSH and free T4 NORMAL - Continue to monitor Prophylaxis - VTE contraindication secondary to anemia - SCDs contraindication secondary to LE edema - Protonix 40mg IVP BID - Heart Healthy/Low Carb Diet
[2018-05-03] MEDS: Tramadol 25 mg PO SCH ×2 (14:31→18:03)
[2018-05-03] MEDS: Ferric Sodium Gluconat Complex 62.5 mg/5 ml Vial IVPB SCH (18:33)
[2018-05-04 02:38] VITALS: O2SAT 96
[2018-05-04 06:32] LABS: BASO % 0.7 % (0.0-2.0); EOS # 0.2 K/uL (0.0-0.7); EOS % 6.4 % (0.0-4.0); HEMOGLOBIN 8.7 g/dL (11.0-16.0); LYMPH # 0.9 K/uL (1.0-4.3); LYMPH % 31.1 % (20.0-40.0); MEAN CELL VOLUME 72.6 fL (81.0-99.0); MEAN CORPUSCULAR HEMOGLOBIN 23.6 pg (27.0-31.0); MEAN CORPUSCULAR HGB CONC 32.4 g/dL (33.0-37.0); MEAN PLATELET VOLUME 8.4 fL (7.2-11.7); MONO # 0.3 K/uL (0.0-0.8); MONO % 9.9 % (0.0-10.0); NEUT # 1.4 K/uL (1.8-7.0); NEUT % 51.9 % (50.0-75.0); RBC 3.68 Mil/uL (3.80-5.20); RED CELL DISTRIBUTION WIDTH 27.5 % (11.5-14.5); WHITE BLOOD COUNT 2.7 K/uL (4.8-10.8)
[2018-05-04 06:53] LABS: ALB/GLOB RATIO 1.1 (1.0-2.1); ALBUMIN 3.5 g/dL (3.5-5.0); ALT/SGPT 37 U/L (9-52); AST/SGOT 45 U/L (14-36); BLOOD UREA NITROGEN 10 mg/dL (7-17); CALCIUM 8.6 mg/dl (8.6-10.4); GFR AFRICAN-AMERICAN > 60; GFR NON-AFRICAN AMERICAN > 60
[2018-05-04 08:23] VITALS: PULSE 59; TEMP 98.6
[2018-05-04] MEDS: Tramadol 25 mg PO SCH ×2 (10:12→13:06)
[2018-05-04] MEDS: Potassium Chloride 20 mEq ER Tab PO SCH ×2 (10:12→12:30)
[2018-05-04 10:20] VITALS: BP 114/65
--- NOTE | 2018-05-04 12:34 | CP.PCM.PN ---
Objective - Vital Signs/Intake and Output Vital Signs (last 24 hours): Temp Pulse Resp BP Pulse Ox 98.6 F 59 L 20 114/65 96 05/04/18 07:00 05/04/18 07:42 05/04/18 07:00 05/04/18 10:13 05/04/18 07:00 - Medications Medications: Current Medications Carvedilol (Coreg) 3.125 mg PO BID [facility] Last Admin: 05/04/18 10:14 Dose: Not Given Ferric Sodium Gluconate Complex (Ferrlecit) 125 mg IVPB Q24H [facility] Stop: 05/08/18 19:01 Last Admin: 05/03/18 18:33 Dose: 125 mg Furosemide (Lasix) 40 mg PO DAILY [facility] Last Admin: 05/04/18 10:13 Dose: 40 mg Lactulose (Enulose) 20 gm PO BID [facility] Last Admin: 05/04/18 10:38 Dose: Not Given Ondansetron HCl (Zofran Inj) 4 mg IVP Q8H [facility] Last Admin: 05/04/18 05:34 Dose: 4 mg Pantoprazole Sodium (Protonix Inj) 40 mg IVP Q12 [facility] Last Admin: 05/04/18 10:12 Dose: 40 mg Spironolactone (Aldactone) 100 mg PO DAILY [facility] Last Admin: 05/04/18 10:13 Dose: 100 mg Tramadol HCl (Ultram) 25 mg PO TID [facility] Last Admin: 05/04/18 10:12 Dose: Not Given - Labs Labs: 05/04/18 06:23 05/04/18 06:23 PT 14.5 SECONDS (9.7-12.2) H 05/01/18 06:34 INR 1.3 05/01/18 06:34 APTT 31 SECONDS (21-34) 04/30/18 07:09
--- NOTE | 2018-05-04 14:11 | CP.PCM.DIS ---
Provider - Provider Date of Admission: 04/29/18 18:51 Attending physician: Hubert Weber MD Primary care physician: Dr. Jasmyn Romero Consults: Hem/Onc: [facility] GI: Diaz Time Spent in preparation of Discharge (in minutes): 45 Diagnosis - Discharge Diagnosis (1) Esophageal varices Status: Acute Comment: see hospital course (2) Anemia Status: Acute Comment: Treated with 3 PRBC transfusions over course (3) Cirrhosis of liver not due to alcohol Status: Acute Comment: Non-alcholic cirrhoisis of unclear origin. Will need additoinal follow up as outpatient Hospital Course - Lab Results Lab Results: Most Recent Lab Values WBC 2.7 K/uL (4.8-10.8) L 05/04/18 06:23 RBC 3.68 Mil/uL (3.80-5.20) L 05/04/18 06:23 Hgb 8.7 g/dL (11.0-16.0) L 05/04/18 06:23 Hct 26.7 % (34.0-47.0) L 05/04/18 06:23 MCV 72.6 fL (81.0-99.0) L 05/04/18 06:23 MCH 23.6 pg (27.0-31.0) L 05/04/18 06:23 MCHC 32.4 g/dL (33.0-37.0) L 05/04/18 06:23 RDW 27.5 % (11.5-14.5) H 05/04/18 06:23 Plt Count 94 K/uL (130-400) L 05/04/18 06:23 MPV 8.4 fL (7.2-11.7) 05/04/18 06:23 Neut % (Auto) 51.9 % (50.0-75.0) 05/04/18 06:23 Lymph % (Auto) 31.1 % (20.0-40.0) 05/04/18 06:23 [place] % (Auto) 9.9 % (0.0-10.0) 05/04/18 06:23 Eos % (Auto) 6.4 % (0.0-4.0) H 05/04/18 06:23 Baso % (Auto) 0.7 % (0.0-2.0) 05/04/18 06:23 Neut # (Auto) 1.4 K/uL (1.8-7.0) L 05/04/18 06:23 Lymph # (Auto) 0.9 K/uL (1.0-4.3) L 05/04/18 06:23 [place] # (Auto) 0.3 K/uL (0.0-0.8) 05/04/18 06:23 Eos # (Auto) 0.2 K/uL (0.0-0.7) 05/04/18 06:23 Baso # (Auto) 0.0 K/uL (0.0-0.2) 05/04/18 06:23 Differential Comment 05/03/18 06:53 Retic Count 2.9 % (0.5-1.5) H D 04/29/18 20:36 PT 14.5 SECONDS (9.7-12.2) H 05/01/18 06:34 INR 1.3 05/01/18 06:34 APTT 31 SECONDS (21-34) 04/30/18 07:09 Sodium 141 mmol/L (132-148) 05/04/18 06:23 Potassium 3.3 mmol/L (3.6-5.2) L 05/04/18 06:23 Chloride 103 mmol/L (98-107) 05/04/18 06:23 Carbon Dioxide 29 mmol/L (22-30) 05/04/18 06:23 Anion Gap 12 (10-20) 05/04/18 06:23 BUN 10 mg/dL (7-17) 05/04/18 06:23 Creatinine 0.6 mg/dL (0.7-1.2) L 05/04/18 06:23 Est GFR ( Amer) > 60 05/04/18 06:23 Est GFR (Non-Af Amer) > 60 05/04/18 06:23 POC Glucose (mg/dL) 122 mg/dL (65-110) H 04/30/18 09:38 Random Glucose 117 mg/dL (65-105) H 05/04/18 06:23 Hemoglobin A1c 5.7 % (4.2-6.5) 04/30/18 07:09 Calcium 8.6 mg/dl (8.6-10.4) 05/04/18 06:23 Phosphorus 3.9 mg/dL (2.5-4.5) 05/03/18 06:53 Magnesium 2.0 mg/dL (1.6-2.3) 05/03/18 06:53 Iron 13 ug/dL (37-170) L 04/29/18 21:03 TIBC 431 ug/dL (250-450) 04/29/18 21:03 % Saturation 3 (20-55) L 04/29/18 21:03 Ferritin 7.4 ng/mL 04/29/18 20:36 Total Bilirubin 1.5 mg/dL (0.2-1.3) H 05/04/18 06:23 AST 45 U/L (14-36) H 05/04/18 06:23 ALT 37 U/L (9-52) 05/04/18 06:23 Alkaline Phosphatase 102 U/L (38-126) 05/04/18 06:23 Total Protein 6.7 g/dL (6.3-8.3) 05/04/18 06:23 Albumin 3.5 g/dL (3.5-5.0) 05/04/18 06:23 Globulin 3.2 gm/dL (2.2-3.9) 05/04/18 06:23 Albumin/Globulin Ratio 1.1 (1.0-2.1) 05/04/18 06:23 Triglycerides 99 mg/dL (0-149) D 04/30/18 07:09 Cholesterol 88 mg/dL (0-199) 04/30/18 07:09 LDL Cholesterol Direct 47 mg/dL (0-129) 04/30/18 07:09 HDL Cholesterol 23 mg/dL (30-70) L 04/30/18 07:09 Vitamin B12 908 pg/mL (239-931) 04/30/18 07:09 Folate 13.7 ng/mL 04/30/18 07:09 Free T4 1.06 ng/dL (0.78-2.19) 04/30/18 07:09 TSH 3rd Generation 2.29 mIU/L (0.46-4.68) 04/30/18 07:09 Urine Color Straw (YELLOW) 04/29/18 16:38 Urine Clarity Clear (Clear) 04/29/18 16:38 Urine pH 7.0 (5.0-8.0) 04/29/18 16:38 Ur Specific Sabin 1.011 (1.003-1.030) 04/29/18 16:38 Urine Protein Negative mg/dL (NEGATIVE) 04/29/18 16:38 Urine Glucose (UA) Normal mg/dL (Normal) 04/29/18 16:38 Urine Ketones Negative mg/dL (NEGATIVE) 04/29/18 16:38 Urine Blood Negative (NEGATIVE) 04/29/18 16:38 Urine Nitrate Negative (NEGATIVE) 04/29/18 16:38 Urine Bilirubin Negative (NEGATIVE) 04/29/18 16:38 Urine Urobilinogen 2.0 mg/dL (0.2-1.0) H 04/29/18 16:38 Ur Leukocyte Esterase Neg Lam/uL (Negative) 04/29/18 16:38 Urine WBC (Auto) < 1 /hpf (0-5) 04/29/18 16:38 Urine RBC (Auto) < 1 /hpf (0-3) 04/29/18 16:38 Ur Squamous Epith Cells < 1 /hpf (0-5) 04/29/18 16:38 Stool Occult Blood Positive (NEGATIVE) H 04/29/18 20:50 IgG 1186.0 mg/dL (700.0-1600.0) 04/30/18 12:53 Anti-Mitochondrial Ab Negative (Negative) 04/30/18 12:53 Anti-Smooth Muscle Ab Negative (Negative) 04/30/18 12:53 Hepatitis A IgM Ab Negative (NEGATIVE) 04/29/18 20:43 Hep Bs Antigen Negative (NEGATIVE) 04/29/18 20:43 Hep B Core IgM Ab Negative (NEGATIVE) 04/29/18 20:43 Hepatitis C Antibody Negative (NEGATIVE) 04/29/18 20:43 HIV 1&2 Antibody Screen Negative (NEGATIVE) 04/29/18 21:03 Blood Type O POSITIVE 04/29/18 17:58 Antibody Screen Negative 04/29/18 17:58 - Hospital Course Hospital Course: On admission: CC: "my legs are swollen" HPI: 57 year old female with past medical history as noted before presents to the ER because her PMD told her to come due to her hemaglobin level of 4.8 in the office. Patient states today was her first visit with her PMD Dr. Romero and she went to see him because she has been having bilateral lower extremity edema for the past 5 days. She states the swelling is new and has never happened before. She states for the past few months she has felt headache, short of breath after walking half a block it takes her 3 minutes of rest to catch her breath. She also states the past couple of weeks she has been having chills and she states she has had a decrease in weight the past year but cannot quantify how many pounds. She states she does take Motrin a few times per week for headache but denies taking it everyday. She states her bowel movements have been regular but her stool has been dark in color and sometimes white. She denies blood in her stool, urine or vaginal bleeding. She states she had a colonoscopy in 1993 because at that time she had some rectal bleeding but she was told everything was normal and the bleeding never returned. She denies chest pain, nausea, vomiting, diarrhea, constipation, fever, dysuria, recent travel or sick contacts. Hospital Course: Female pt presented to ED from referral of PMD for symptomatic anemia with hemoglobin of 4.8 on admission. Pt was transfused with two (2) units of PRBCs upon admission. Dr Perales, GI consulted. Dr Perales performed EGD revealing esophageal and gastric varies and band ligation with 3 bands. Multiple superficial gastric antral ulcers were also found, likely secondary to NSAID use. Dr. Dinero, Hem/Onc consulted. Pt hemoglobin monitored and transfused an additional 1 PRBCs. Pt additionally had an abdominal ultrasound and & CT to evaluate the liver for thrombocytopenia. Initial tests indicated ascites likely to hepatic cirrhosis, splenomegaly, & cholelithiasis w/o cholecystits however, additional tests showed no significant ascites, requiring no paracentesis. Pt started on lasix and spironolactone for relief of symptoms. Pts was had hepatitis and HIV panel for evaluation of her neutropenia; however, both were negative. Hemoglobin was stable at 8.7 on 05/04/18 - day of discharge. Pt will need follow up within one week with GI and Hem/Onc. She was discharged with the following meds: Coreg, Feosol, Lasix, Lactulose, Protonix, Rifaximin, Spirinolactone. Patient's chronic type 2 diabetes and HTN were managed with home medications in addition to Coreg, Lasix, and Glipizide. Discharge Exam - Head Exam Head Exam: NORMAL INSPECTION, NORMOCEPHALIC Discharge Plan - Discharge Medications Prescriptions: Carvedilol [Coreg] 3.125 mg PO BID #60 tab Ferrous Sulfate [Feosol] 325 mg PO DAILY #30 tab Furosemide [Lasix] 40 mg PO DAILY #30 tab Lactulose [Enulose] 20 gm PO BID #60 udc Pantoprazole Sodium [Protonix] 40 mg PO DAILY #30 ect rifAXIMin [Xifaxan] 550 mg PO BID #60 tab Spironolactone [Aldactone] 100 mg PO DAILY #30 tab - Follow Up Plan Condition: STABLE Disposition: HOME/ ROUTINE Instructions: Heart Healthy Diet, Gastrointestinal Bleeding (DC), Cirrhosis (DC ), Esophageal Varices (DC), Carvedilol, Ferrous Sulfate, Furosemide, Lactulose, Pantoprazole, Rifaximin, Spironolactone, Normocytic Normochromic Anemia (DC) Additional Instructions: Patient stable for discharge per Dr. Yadav Patient is to STOP taking daily aspirin, Actos, and Metformin. Patient will be started on medications listed below. Patient is to follow up with PMD, Dr. Romero within one week of discharge. Patient is to follow up with GI specialist, Dr. Perales, and Dr. Dinero, Hem/Onc, within one week of discharge. Addresses/Phone numbers listed below. Patient is to return to ED immediately if symptoms return or worsen. Patient given these instruction via Hortensia, the nurse. Patient verbalized agreement to these instructions. Medication Reconciliation: Coreg 3.125mg twice daily by mouth Feosol 325mg daily by mouth Lasix 40mg daily by mouth Lactulose 20gm by mouth twice daily Protonix 40mg daily by mouth Rifaximin 550mg by mouth twice daily Spirinolactone 100mg by mouth daily Paciente estable para ralph por Dr. Yadav El paciente debe DEJAR de asad diariamente aspirina, Actos y Metformina. El paciente comenzar con los medicamentos que se detallan a continuacin. El paciente debe realizar un seguimiento con PMFauzia, Dr. Romero, dentro de la semana posterior al ralph. El paciente debe realizar un seguimiento con el especialista en gastroenterologa, el Dr. Perales, y el Dr. Dinero, Hem / Onc, en el plazo de thu semana despus del ralph. Direcciones / nmeros de telfono detallados a continuacin. El paciente debe regresar a la laure de emergencias inmediatamente si los s ntomas reaparecen o empeoran. El paciente recibi estas instrucciones a travs de Hortensia, la enfermera. El paciente verbaliz snow acuerdo con estas instrucciones. Reconciliacin de medicamentos: Coreg 3.125 mg dos veces al da por va oral Feosol 325mg diariamente por va oral Lasix 40mg al da por va oral Lactulosa 20gm por va oral dos veces al da Protonix 40mg diariamente por va oral Rifaximin 550mg por va oral dos veces al da Spirinolactone 100 mg por va oral al da Referrals: Paramjit Dinero MD [Staff Provider] - Lion Perales MD [Staff Provider] -
--- NOTE | 2018-05-05 06:02 | CARD ---
APPROVED REPORT EKG Measurement Heart [id number] <Conclusion> Normal sinus rhythm Cannot rule out Inferior infarct, age undetermined Cannot rule out Anterior infarct, age undetermined Abnormal ECG
== END 2018-05-04 17:18 | disposition home or self-care (01) | DRG 432 ==
LOC: C.ER 15:43 → C.9E 18:51 → C.6T 20:06
PROVIDERS: ADMIT Internal Medicine; ATTEND Internal Medicine
PROC: 30233N1 Transfusion of Nonautologous Red Blood Cells into Peripheral Vein, Percutaneous Approach (ICD-10-PCS; 2018-04-29)
PROC: 0DB68ZX Excision of Stomach, Via Natural or Artificial Opening Endoscopic, Diagnostic (ICD-10-PCS; 2018-04-30)
PROC: 06L38CZ Occlusion of Esophageal Vein with Extraluminal Device, Via Natural or Artificial Opening Endoscopic (ICD-10-PCS; principal; 2018-04-30 10:01)
DX: K74.60 Unspecified cirrhosis of liver (principal); K25.4 Chronic or unspecified gastric ulcer with hemorrhage; I85.10 Secondary esophageal varices without bleeding; D61.818 Other pancytopenia; K76.6 Portal hypertension; R18.8 Other ascites; D50.0 Iron deficiency anemia secondary to blood loss (chronic); I86.4 Gastric varices; T39.395A Adverse effect of other nonsteroidal anti-inflammatory drugs [NSAID], initial encounter; K80.20 Calculus of gallbladder without cholecystitis without obstruction; I12.9 Hypertensive chronic kidney disease with stage 1 through stage 4 chronic kidney disease, or unspecified chronic kidney disease; E11.22 Type 2 diabetes mellitus with diabetic chronic kidney disease; N18.9 Chronic kidney disease, unspecified; I51.7 Cardiomegaly; E78.5 Hyperlipidemia, unspecified; Z53.8 Procedure and treatment not carried out for other reasons; Z87.11 Personal history of peptic ulcer disease; Z87.442 Personal history of urinary calculi; Z79.84 Long term (current) use of oral hypoglycemic drugs

== ENCOUNTER 2018-07-22 08:22 | Day surgery (SDC) | payer OTHER ==
[2018-07-22 09:08] VITALS: BMI 24.6
[2018-07-22] MEDS ORDERED: Propofol 10 mg/ml Inj (20 ML) ONE ×2 (09:43→10:13)
[2018-07-22] MEDS ORDERED: Lactated Ringer's 1,000 ML IV ONE (09:57)
--- NOTE | 2018-07-22 09:58 | CP.SDSHP ---
Same Day Surgery H & P - History Proposed Procedure: EGD/colonoscopy Pre-Op Diagnosis: history of varices, iron deficiency anemia - Previous Medical/Surgical History Comments: cirrhosis - Allergies Allergies: Allergies No Known Allergies Allergy (Verified 07/22/18 09:08) - Physical Exam General Appearance: NAD Vital Signs: Vital Signs 07/22/18 08:52 Temperature 98.1 F Pulse Rate 66 Respiratory 20 Rate Blood Pressure 129/61 O2 Sat by Pulse 99 Oximetry Mental Status: Alert & Oriented x3 Neuro: WNL Heart: WNL Lungs: WNL GI: WNL - {Optional Preform as Required} Abdomen: WNL - Impression Pt. Evaluated Today:Candidate for Anesthesia & Procedure: Yes - Date & Time Date: 07/22/18 Time: 09:58 Short Stay Discharge - Short Stay Discharge Admitting Diagnosis/Reason for Visit: UNSPECIFIED CIRRHOSIS OF LIVER Disposition: HOME/ ROUTINE
[2018-07-22 10:50] VITALS: TEMP 98.7; O2SAT 100
[2018-07-22 11:43] VITALS: BP 145/66; PULSE 58; RESP 11
== END 2018-07-22 12:22 | disposition home or self-care (01) ==
LOC: C.ENDO 08:22
PROVIDERS: ATTEND Internal Medicine Gastroenterology
DX: K74.60 Unspecified cirrhosis of liver (principal); D50.9 Iron deficiency anemia, unspecified; I85.00 Esophageal varices without bleeding
CPT/HCPCS: 43235; 82948; 88305; 88342; J2704; J7120

== ENCOUNTER 2018-07-23 06:42 | Day surgery (SDC) | payer OTHER ==
[2018-07-23 07:14] VITALS: BMI 23.3
--- NOTE | 2018-07-23 08:03 | CP.SDSHP ---
Same Day Surgery [facility] & P - History Proposed Procedure: colonoscopy Pre-Op Diagnosis: iron deficiency anemia - Previous Medical/Surgical History Comments: cirrhosis - Allergies Allergies: Allergies No Known Allergies Allergy (Verified 07/23/18 07:12) - Physical Exam General Appearance: NAD Vital Signs: Vital Signs 07/23/18 07:16 Temperature 98.4 F Pulse Rate 66 Respiratory 19 Rate Blood Pressure 125/63 O2 Sat by Pulse 99 Oximetry Mental Status: Alert & Oriented x3 Neuro: WNL Heart: WNL Lungs: WNL GI: WNL - {Optional Preform as Required} Abdomen: WNL - Impression Pt. Evaluated Today:Candidate for Anesthesia & Procedure: Yes - Date & Time Date: 07/23/18 Time: 08:03 Short Stay Discharge - Short Stay Discharge Admitting Diagnosis/Reason for Visit: CIRRHOSIS OF LIVER, IRON DEFICIENCY Disposition: HOME/ ROUTINE
[2018-07-23 08:48] VITALS: TEMP 97.1
[2018-07-23 12:07] VITALS: BP 130/67; PULSE 65; RESP 13; O2SAT 99
== END 2018-07-23 10:45 | disposition home or self-care (01) ==
LOC: C.ENDO 06:42
PROVIDERS: ATTEND Internal Medicine Gastroenterology
DX: D50.9 Iron deficiency anemia, unspecified (principal); K74.60 Unspecified cirrhosis of liver; K64.1 Second degree hemorrhoids

== ENCOUNTER 2018-11-11 06:38 | Day surgery (SDC) | payer OTHER ==
[2018-11-11] MEDS ORDERED: Lactated Ringer's 500 ML IV SCH (08:45)
[2018-11-11] MEDS ORDERED: Lactated Ringer's 500 ML IV ONE (09:02)
[2018-11-11] MEDS ORDERED: Propofol 10 mg/ml Inj (20 ML) ONE ×2 (09:15)
[2018-11-11] MEDS ORDERED: Midazolam 2 MG/2 ML VIAL ONE (09:15)
--- NOTE | 2018-11-11 09:15 | CP.SDSHP ---
Same Day Surgery [facility] & P - History Proposed Procedure: EGD Pre-Op Diagnosis: cirrhosis, variceal surveillance - Allergies Allergies: Allergies No Known Allergies Allergy (Verified 11/11/18 07:09) - Physical Exam General Appearance: NAD Vital Signs: Vital Signs 11/11/18 11/11/18 07:15 08:14 Temperature 98.4 F Pulse Rate 69 69 Respiratory 19 Rate Blood Pressure 126/49 L O2 Sat by Pulse 98 Oximetry Mental Status: Alert & Oriented x3 Neuro: WNL Heart: WNL Lungs: WNL GI: WNL - {Optional Preform as Required} Abdomen: WNL - Impression Pt. Evaluated Today:Candidate for Anesthesia & Procedure: Yes - Date & Time Date: 11/11/18 Time: 09:15 Short Stay Discharge - Short Stay Discharge Admitting Diagnosis/Reason for Visit: ESOPHAGEAL VARICES WITHOUT BLEEDING Disposition: HOME/ ROUTINE
[2018-11-11 09:17] VITALS: O2SAT 100
[2018-11-11 10:00] VITALS: TEMP 98
[2018-11-11 14:53] VITALS: BP 128/62; PULSE 75; RESP 20
== END 2018-11-11 13:00 | disposition home or self-care (01) ==
LOC: C.ENDO 06:38
PROVIDERS: ATTEND Internal Medicine Gastroenterology
DX: I85.00 Esophageal varices without bleeding (principal); K76.6 Portal hypertension; K31.89 Other diseases of stomach and duodenum
CPT/HCPCS: 43239; 88305; J2250; J2704; J7120

== ENCOUNTER 2019-02-17 08:54 | Day surgery (SDC) | payer OTHER ==
[2019-02-17 09:36] VITALS: BMI 21.7
[2019-02-17 09:56] VITALS: PULSE 58; RESP 20; TEMP 98.7; O2SAT 98
[2019-02-17] MEDS ORDERED: Propofol 10 mg/ml Inj (20 ML) ONE (10:57)
[2019-02-17] MEDS ORDERED: Lactated Ringer's 500 ML IV SCH (11:00)
--- NOTE | 2019-02-17 11:06 | CP.SDSHP ---
Same Day Surgery [facility] & P - History Proposed Procedure: EGD Pre-Op Diagnosis: variceal surveillance - Previous Medical/Surgical History Comments: cirrhosis - Allergies Allergies: Allergies No Known Allergies Allergy (Verified 02/17/19 09:35) - Physical Exam General Appearance: NAD Vital Signs: Vital Signs 02/17/19 09:47 Temperature 98.7 F Pulse Rate 58 L Respiratory 20 Rate Blood Pressure 113/56 L O2 Sat by Pulse 98 Oximetry Mental Status: Alert & Oriented x3 Neuro: WNL Heart: WNL Lungs: WNL GI: WNL - {Optional Preform as Required} Abdomen: WNL - Impression Pt. Evaluated Today:Candidate for Anesthesia & Procedure: Yes - Date & Time Date: 02/17/19 Time: 11:06 Short Stay Discharge - Short Stay Discharge Admitting Diagnosis/Reason for Visit: ESOPHAGEAL VARICES WITHOUT BLEEDING Disposition: HOME/ ROUTINE
[2019-02-17] MEDS ORDERED: Lactated Ringer's 1,000 ML IV ONE (11:14)
[2019-02-17 13:19] VITALS: BP 118/69
== END 2019-02-17 13:21 | disposition home or self-care (01) ==
LOC: C.ENDO 08:54
PROVIDERS: ATTEND Internal Medicine Gastroenterology
DX: K22.8 Other specified diseases of esophagus (principal); K76.6 Portal hypertension; K31.89 Other diseases of stomach and duodenum
CPT/HCPCS: 43239; 88305; 88312; J2001; J2704; J3010; J7120